=== PATIENT | male | born 1975 | race Caucasian/White ===

== ENCOUNTER 2019-11-23 15:10 | Emergency (ER) | payer MEDICARE, MEDICAID, SELFPAY ==
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
[2019-11-23 15:20] VITALS: BP 150/78; PULSE 102; RESP 20; TEMP 36.4; O2SAT 97
--- NOTE | 2019-11-23 15:24 | ECG_ITS ---
Measurements Intervals [place] Rate: 89 P: 64 WV: 145 QRS: 54 QRSD: 92 T: 33 QT: 348 QTc: 425 Interpretive Statements SINUS RHYTHM BORDERLINE T WAVE ABNORMALITY- INFERIOR LEADS BASELINE ARTIFACT- I, III, AVR, AVL, AVF BORDERLINE ECG Electronically Signed On 11-23-2019 15:47:16 CDT by Tavon Nunez D.O.
[2019-11-23 17:03] LABS: Basophils Percent Auto 0.4 % (0.2-1.2); Eosinophils Absolute Auto 0.2 K/mm3 (0-0.3); Eosinophils Percent Auto 2.5 % (0-4.4); Hematocrit 39.8 % (42.0-52.0); Hemoglobin 12.6 g/dL (14.0-18.0); Immature Granulocyte Absolute 0.02 K/mm3 (0.00-0.031); Immature Granulocyte Percent A 0.3 % (0-0.5); Lymphocytes Absolute Auto 1.41 K/mm3 (0.9-3.2); Lymphocytes Percent Auto 18.6 % (18.3-44.2); Mean Corpuscular HGB Conc 31.7 g/dl (32-36); Mean Corpuscular Hemoglobin 27.8 pg (26-34); Mean Corpuscular Volume 87.7 fl (80-100); Mean Platelet Volume 10.1 fl (7.4-10.4); Monocytes Absolute Auto 0.6 K/mm3 (0.1-0.6); Monocytes Percent Auto 8.2 % (2.6-8.5); Neutrophils Absolute Auto 5.3 K/mm3 (1.3-6.7); Platelet Count Result 201 k/mm3 (150-375); Red Blood Count 4.54 M/mm3 (4.6-6.20); White Blood Count 7.6 K/mm3 (4.5-10.0)
[2019-11-23 17:13] LABS: Prothrombin Time 12.5 Seconds (11.1-14.7)
[2019-11-23 17:14] LABS: Blood Urea Nitrogen 17 mg/dL (9-20); Calcium 8.8 mg/dL (8.4-10.2); Carbon Dioxide 26 mmol/L (22-30); Chloride 105 mmol/L (98-107); Estimated CRCL calculation 148 ml/min; Estimated Glomerular Filt Rate > 60; Glucose 99 mg/dL (75-110); Partial Thromboplastin Time 28.1 SECONDS (22.3-36.8); Potassium 4.4 mmol/L (3.4-5.0); Sodium 138 mmol/L (137-145)
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
[2019-11-23 17:55] VITALS: BP 136/94; PULSE 83; RESP 18; O2SAT 97
[2019-11-23] MEDS: KETOROLAC 30 MG/ML VIAL (*BKC) IV PUSH (17:55)
--- NOTE | 2019-11-23 19:10 | PC.NURSE ---
called lab to add on orders at this time
[2019-11-23 19:59] LABS: Troponin I < 0.012 ng/mL (0.000-0.034)
[2019-11-23 20:43] VITALS: BP 153/98; PULSE 72; RESP 20; O2SAT 97
== END 2019-11-23 21:20 | disposition home or self-care (01) ==
PROVIDERS: Physician Assistant; Emergency Provider Emergency Medicine; PCP Family Medicine
DX: S22.32XA Fracture of one rib, left side, initial encounter for closed fracture (principal); J90 Pleural effusion, not elsewhere classified; Z86.718 Personal history of other venous thrombosis and embolism; K21.9 Gastro-esophageal reflux disease without esophagitis; Z98.1 Arthrodesis status; M47.816 Spondylosis without myelopathy or radiculopathy, lumbar region; M47.814 Spondylosis without myelopathy or radiculopathy, thoracic region; M48.04 Spinal stenosis, thoracic region; M48.061 Spinal stenosis, lumbar region without neurogenic claudication; V47.6XXA Car passenger injured in collision with fixed or stationary object in traffic accident, initial encounter
CPT/HCPCS: 36415; 71046; 71100; 72128; 72131; 73030; 80048; 84484; 85025; 85610; 85730; 93005; 96374; 99284; A9270; J1885

== ENCOUNTER 2020-02-24 08:39 | Observation (INO) | payer MEDICARE, MEDICAID, SELFPAY ==
[2020-02-24] VITALS (9 sets, daily range): BP systolic 113–149; BP diastolic 59–104; PULSE 82–102; RESP 18–20; TEMP 36.7–37.2; O2SAT 94–100; BMI 53.1
--- NOTE | ~2020-02-24 | CT_ITS ---
EXAMINATION: CT facial bones w con EXAM DATE: 02/26/2020 09:20 INDICATION: Oral pain, recent dental infection. Poor dilatation. TECHNIQUE: Spiral CT of the facial bones was acquired in the axial plane following intravenous inject ion of 75 mL Omnipaque 350. Coronal reformatted images were also reviewed. The dose-length product (DLP) for this examination was 821.45 mGy-cm. The exposure was tailored according to patient size, a nd iterative reconstruction (ASIR) was used as additional dose reduction technique. There is no prio r study for comparison. FINDINGS: Patient is missing multiple teeth. There is no periapical lucency of the remaining teeth. T here is sizable erosion in tooth #6. No appreciable facial swelling, no abscess. Submandibular and pa rotid glands were imaged and are unremarkable. No facial venous thrombosis. Tiny right maxillary sinu s mucous retention cyst. There are no displaced acute nasal bone fractures. The mandible, sinuses and orbits are intact. The orbits, globes and extraocular muscles are unremarkable. IMPRESSION: Cavity and tooth #6. No periapical lucency or soft tissue abscess. Reviewed, dictated and finalized at location B.
--- NOTE | ~2020-02-24 | US_ITS ---
EXAMINATION: US venous doppler LE EXAM DATE: 02/27/2020 14:59 INDICATION: Previous blood clot, on anticoagulation. Hematoma. TECHNIQUE: Multiple grayscale, color flow and Doppler images of the lower extremity deep venous syste ms bilaterally were obtained and reviewed. Comparison is made to prior examination from 10/02/2008. FINDINGS: Right side: The right common femoral, femoral and profunda veins demonstrate normal color flow, respi ratory variation, augmentation and compressibility. Compressibility, color flow confirmed within the right popliteal, posterior tibial, peroneal, and greater saphenous veins. There is a right calf supe rficial vein which is noncompressible, thrombosed. Left side: The left common femoral, femoral and profunda veins demonstrate normal color flow, respira tory variation, augmentation and compressibility. Compressibility, color flow confirmed within the l eft popliteal, posterior tibial, peroneal, and greater saphenous veins. IMPRESSION: 1. Right calf superficial thrombophlebitis. 2. No lower extremity deep venous thrombosis bilaterally. Reviewed, dictated and finalized at location B.
--- NOTE | ~2020-02-24 | CT_ITS ---
EXAMINATION: CT abd pelvis lumbar wo con DATE: 02/24/2020 12:39 INDICATION: Abdominal pain. Back pain. Leukocytosis. TECHNIQUE: Computed tomography (CT) of the abdomen and pelvis and lumbar spine was performed without intravenous contrast. Automated exposure control and iterative reconstruction technique were employed . The dose-length product was 1612.98 mGy-cm. COMPARISON: CT lumbar spine 11/23/2019, CT abdomen and pelvis 12/09/2010 FINDINGS: CT ABDOMEN AND PELVIS: The visualized portions of the lung bases demonstrate mild elevation of right hemidiaphragm and mild atelectasis. Calcified right lung nodules are consistent with old granulomatou s disease. No pleural effusion. The heart size is normal. No pericardial effusion. There are surgical changes of the stomach. The liver and spleen are normal. There are changes of cholecystectomy. The p ancreas, adrenal glands, and kidneys are normal. There is no urolithiasis. There is a catheter in the bladder. There are no dilated loops of bowel. The appendix is normal. There are no pathologically en larged lymph nodes. There is no free intraperitoneal fluid. There is enlargement of left iliacus musc le with adjacent fat stranding. CT LUMBAR SPINE: There is 15 degrees levoscoliosis of lumbar spine. There is interbody fusion at L2-L 3. There are changes of posterior fusion procedure at L2-L3 with pedicle screws. There is chronic ant erior wedging of T12 and L1 vertebral bodies. There is severely decreased disc height at L1-L2, moder ately decreased disc height at L3-L4 and L4-L5, and severely decreased disc height at L5-S1. The foll owing disc levels are specifically discussed: L1-L2: The disc is bulging. There is severe bilateral facet joint osteoarthritis. There is moderate b ilateral neural foraminal stenosis. There is mild central canal stenosis. L2-L3: There is mild left facet joint hypertrophy. There is mild left neural foraminal stenosis. Ther e is no central canal stenosis. L3-L4: The disc is bulging. There is severe bilateral facet joint osteoarthritis. There is moderate b ilateral neural foraminal stenosis. There is moderate central canal stenosis. L4-L5: The disc is bulging. There is severe bilateral facet joint osteoarthritis. There is mild bilat eral neural foraminal stenosis. There is mild central canal stenosis. L5-S1: The disc is bulging. There is moderate right and severe left facet joint osteoarthritis. There is severe bilateral neural foraminal stenosis. There is mild central canal stenosis. IMPRESSION: 1. Enlargement of left iliacus muscle with adjacent fat stranding, most likely secondary to isodense intramuscular hematoma. 2. Severe lumbar spondylosis. 3. Anterior and posterior fusion procedures at L2-L3. 4. Lumbar levoscoliosis. Reviewed, dictated and finalized at location A.
--- NOTE | ~2020-02-24 | XR_ITS ---
EXAMINATION: XR foot RT 2V DATE: 02/24/2020 22:23 INDICATION: Right foot pain. TECHNIQUE: 2 views of right foot were obtained. COMPARISON: None. FINDINGS: There is mild hallux valgus. No fracture. Joint spaces are normal. There are enthesophytes at the posterior and plantar aspects of calcaneal tuberosity. IMPRESSION: 1. Mild hallux valgus. Reviewed, dictated and finalized at location A. IMPRESSION: 1. Mild hallux valgus.
--- NOTE | ~2020-02-24 | XR_ITS ---
EXAMINATION: XR chest 1V portable DATE: 02/24/2020 12:44 INDICATION: Weakness. TECHNIQUE: A single frontal view of the chest was obtained on 2 radiographs. COMPARISON: Chest 2 views 11/23/2019 FINDINGS: There is eventration of anterior right hemidiaphragm. There is mild atelectasis at right shanique ng base. No pleural effusion or pneumothorax. The heart size is normal. There are changes of posterio r fusion procedure in lumbar spine. Surgical clips in the right upper quadrant are likely from cholec ystectomy. IMPRESSION: 1. Chronic eventration of anterior right hemidiaphragm with mild atelectasis at right lung base. Reviewed, dictated and finalized at location A.
[2020-02-24] MEDS: ONDANSETRON INJ 4 MG/2 ML VIAL IV PUSH (10:00)
[2020-02-24] MEDS: KETOROLAC 30 MG/ML VIAL (*BKC) IV PUSH (10:00)
[2020-02-24] MEDS: LACTATED RINGERS 1,000 ML 999 ML IV CONT (10:00)
[2020-02-24 10:18] LABS: Basophils Percent Auto 0.2 % (0.2-1.2); Eosinophils Absolute Auto 0.1 K/mm3 (0-0.3); Eosinophils Percent Auto 0.3 % (0-4.4); Hematocrit 27.8 % (42.0-52.0); Hemoglobin 8.8 g/dL (14.0-18.0); Immature Granulocyte Absolute 0.19 K/mm3 (0.00-0.031); Immature Granulocyte Percent A 1.1 % (0-0.5); Lymphocytes Absolute Auto 0.71 K/mm3 (0.9-3.2); Mean Corpuscular HGB Conc 31.7 g/dl (32-36); Mean Corpuscular Hemoglobin 26.8 pg (26-34); Mean Corpuscular Volume 84.8 fl (80-100); Monocytes Absolute Auto 1.2 K/mm3 (0.1-0.6); Monocytes Percent Auto 6.9 % (2.6-8.5); Neutrophils Absolute Auto 15.4 K/mm3 (1.3-6.7); Neutrophils Percent Auto 87.5 % (45.5-73.1); Platelet Count Result 258 k/mm3 (150-375); Red Blood Count 3.28 M/mm3 (4.6-6.20); Red Cell Distribution Width 15.1 % (11.5-14.5); White Blood Count 17.6 K/mm3 (4.5-10.0)
[2020-02-24 10:30] LABS: INR 1.4
[2020-02-24 10:31] LABS: Partial Thromboplastin Time 44.7 SECONDS (22.3-36.8)
[2020-02-24 10:40] LABS: Alanine Aminotransferase 23 U/L (4-50); Albumin Level 2.9 g/dL (3.5-5.1); Alkaline Phosphatase 142 U/L (38-126); Anion Gap 8 mmol/L (8-16); Aspartate Amino Transferase 30 U/L (17-59); Bilirubin,Total 0.2 mg/dL (0.2-1.3); Blood Urea Nitrogen 16 mg/dL (9-20); Calcium 8.3 mg/dL (8.4-10.2); Carbon Dioxide 27 mmol/L (22-30); Chloride 102 mmol/L (98-107); Creatine Kinase 141 U/L (55-170); Estimated Glomerular Filt Rate > 60; Glucose 103 mg/dL (75-110); Potassium 3.1 mmol/L (3.4-5.0); Sodium 137 mmol/L (137-145)
[2020-02-24 11:33] LABS: Lipase < 10 U/L (23-300)
[2020-02-24 11:37] LABS: Add Urine Microscopic? YES; Appearance Urine Clear (Clear); Bacteria Urine Trace /hpf; Bilirubin Urine Negative (Negative); Blood Urine 3+ (Negative); Cellular Casts Urine Present /lpf; Color Urine Yellow (Yellow); Glucose Urine UA Negative (Negative); Ketones Urine Negative (Negative); Leukocyte Esterase Ur Negative LEU/UL (Negative); Mucus Urine Rare /lpf; Nitrate Urine Negative (Negative); Protein Urine 2+ mg/dL (Negative); RBC Urine >75 /hpf (0-2); Specific Grav Ur 1.023 (1.001-1.035); Squamous Epithelial Cell Urine Occasional /hpf (Few); Urobilinogen Urine Negative mg/dL (<2.0); WBC Urine 16-20 /hpf
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
[2020-02-24 15:50] LABS: Hematocrit 29.1 % (42.0-52.0); Hemoglobin 9.1 g/dL (14.0-18.0)
--- NOTE | 2020-02-24 17:40 | ADMGEN ---
This patient, Moreno Slaughter, was admitted to Medical Room 243-01. Patient/family oriented to hospital policies and general routines including ID bracelet, bed and alarms, visiting hours, pain management, procedures, bathroom and other care routines, personal items, smoking policy, room service/diet, and visiting hours. Valuables list has been completed. Information on how to activate the Rapid Response Team has been discussed. Patient/Family are encouraged to report perceived risks to care and to ask questions if they do not understand what they are told or what they should do.
[2020-02-24] MEDS: polyethylene glycoL 3350 17 GM POWD.PACK PO (20:30)
[2020-02-24] MEDS: BISACODYL 5 MG TABLET EC PO (20:30)
[2020-02-24 22:05] LABS: Hematocrit 28.2 % (42.0-52.0); Hemoglobin 9.2 g/dL (14.0-18.0)
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
[2020-02-24] MEDS: METHYLNALTREXONE 12 MG/0.6 ML VIAL SUB-Q (23:04)
[2020-02-24] MEDS: traZODone HCL 50 MG TABLET PO (23:07)
[2020-02-24] MEDS: MELATONIN 3 MG TABLET PO (23:07)
[2020-02-24] MEDS: TIZANIDINE HCL 4 MG TABLET PO (23:09)
[2020-02-25] MEDS: methylPREDNISolone SOD SUCC 125 MG VIAL 60 MG IV PUSH ×4 (00:40→17:15)
[2020-02-25] MEDS: CLINDAMYCIN HCL 150 MG CAP 300 MG PO ×4 (00:50→17:15)
[2020-02-25 03:09] LABS: Basophils Percent Auto 0.2 % (0.2-1.2); Hematocrit 28.6 % (42.0-52.0); Hemoglobin 9.2 g/dL (14.0-18.0); Immature Granulocyte Absolute 0.12 K/mm3 (0.00-0.031); Immature Granulocyte Percent A 0.7 % (0-0.5); Lymphocytes Absolute Auto 0.63 K/mm3 (0.9-3.2); Lymphocytes Percent Auto 3.5 % (18.3-44.2); Mean Corpuscular HGB Conc 32.2 g/dl (32-36); Mean Corpuscular Hemoglobin 26.7 pg (26-34); Mean Corpuscular Volume 82.9 fl (80-100); Mean Platelet Volume 10.5 fl (7.4-10.4); Monocytes Absolute Auto 0.5 K/mm3 (0.1-0.6); Monocytes Percent Auto 2.8 % (2.6-8.5); Neutrophils Absolute Auto 16.7 K/mm3 (1.3-6.7); Neutrophils Percent Auto 92.8 % (45.5-73.1); Platelet Count Result 257 k/mm3 (150-375); Red Blood Count 3.45 M/mm3 (4.6-6.20); Red Cell Distribution Width 14.7 % (11.5-14.5)
[2020-02-25 03:22] LABS: Alanine Aminotransferase 27 U/L (4-50); Albumin Level 3.1 g/dL (3.5-5.1); Alkaline Phosphatase 157 U/L (38-126); Anion Gap 9 mmol/L (8-16); Aspartate Amino Transferase 39 U/L (17-59); Bilirubin,Total 0.5 mg/dL (0.2-1.3); Blood Urea Nitrogen 15 mg/dL (9-20); Calcium 8.5 mg/dL (8.4-10.2); Carbon Dioxide 24 mmol/L (22-30); Chloride 103 mmol/L (98-107); Estimated CRCL calculation 160 ml/min; Estimated Glomerular Filt Rate > 60; Glucose 126 mg/dL (75-110); Potassium 3.4 mmol/L (3.4-5.0); Sodium 136 mmol/L (137-145)
[2020-02-25 06:00] VITALS: BP 146/76; PULSE 98; RESP 22; TEMP 36.1; O2SAT 98
[2020-02-25] MEDS: CYCLOBENZAPRINE HCL 10 MG TABLET PO ×3 (08:35→17:15)
[2020-02-25] MEDS: POTASSIUM CHLORIDE 20 MEQ TABLET PO (08:35)
[2020-02-25] MEDS: POTASSIUM CHLORIDE 20 MEQ TABLET.ER PO (08:35)
[2020-02-25] MEDS: PANTOPRAZOLE 40 MG TABLET PO (08:35)
[2020-02-25] MEDS: GABAPENTIN 300 MG CAPSULE 600 MG PO ×3 (08:36→17:15)
[2020-02-25] MEDS: MULTIVITAMINS THERAPEUTIC TAB (*BKC) 1 TABLET PO (09:29)
[2020-02-25] MEDS: FUROSEMIDE 40 MG TABLET PO (09:29)
--- NOTE | 2020-02-25 11:50 | PCPTNOTE ---
Per nursing, patient is complaining of significant pain, just medicated by nursing and patient is sleeping...will see later as appropriate
--- NOTE | 2020-02-25 12:51 | PCPTNOTE ---
Tried many times to persuade patient to walk with therapist...declined multiple times...said that he would walk at 3:00...we'll see.
--- NOTE | 2020-02-25 12:57 | PC.NURSE ---
The patient refused to have the MRI performed due to being claustrophobic. MOIRA Lara said to cancel the order for that MRI.
[2020-02-25] MEDS: BISACODYL 5 MG TABLET EC PO (13:10)
[2020-02-25] MEDS: polyethylene glycoL 3350 17 GM POWD.PACK 34 GM PO (13:31)
[2020-02-25 14:00] VITALS: BP 128/65; PULSE 63; RESP 16; TEMP 35.9; O2SAT 95
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
[2020-02-25 16:25] LABS: Amphetamine Screen Urine Negative (Negative); Barbiturate Screen Urine Negative (Negative); Benzodiazepines Screen Urine Negative (Negative); Cannabinoid Screen Urine Negative (Negative); Cocaine Screen Urine Negative (Negative); Methadone Screen Urine Negative (Negative); Opiate Screen Urine Positive (Negative); Phencyclidine Screen Urine Negative (Negative)
[2020-02-25] MEDS: traZODone HCL 50 MG TABLET PO (20:55)
[2020-02-25] MEDS: predniSONE 40 MG, predniSONE 10 MG 50 MG PO (20:55)
[2020-02-25] MEDS: MELATONIN 3 MG TABLET PO (20:55)
[2020-02-25 21:58] VITALS: BP 136/74; PULSE 92; RESP 18; TEMP 36.1; O2SAT 96
[2020-02-26] MEDS: methylPREDNISolone SOD SUCC 125 MG VIAL 60 MG IV PUSH ×4 (00:08→17:40)
[2020-02-26] MEDS: CLINDAMYCIN HCL 150 MG CAP 300 MG PO ×3 (00:09→12:51)
[2020-02-26] MEDS: predniSONE 40 MG, predniSONE 10 MG 50 MG PO ×2 (04:11→08:08)
[2020-02-26 04:56] LABS: IFOB Positive Control Positive; Immunochemical Fecal Occult Bl Positive (N)
[2020-02-26 05:45] VITALS: BP 131/76; PULSE 96; RESP 20; TEMP 36.2; O2SAT 97
[2020-02-26 06:01] LABS: Basophils Percent Auto 0.2 % (0.2-1.2); Hematocrit 30.3 % (42.0-52.0); Hemoglobin 9.9 g/dL (14.0-18.0); Immature Granulocyte Absolute 0.15 K/mm3 (0.00-0.031); Immature Granulocyte Percent A 0.7 % (0-0.5); Lymphocytes Absolute Auto 1.02 K/mm3 (0.9-3.2); Lymphocytes Percent Auto 4.6 % (18.3-44.2); Mean Corpuscular HGB Conc 32.7 g/dl (32-36); Mean Corpuscular Hemoglobin 26.8 pg (26-34); Mean Corpuscular Volume 81.9 fl (80-100); Mean Platelet Volume 11.4 fl (7.4-10.4); Monocytes Absolute Auto 0.5 K/mm3 (0.1-0.6); Monocytes Percent Auto 2.3 % (2.6-8.5); Neutrophils Absolute Auto 20.5 K/mm3 (1.3-6.7); Neutrophils Percent Auto 92.2 % (45.5-73.1); Platelet Count Result 330 k/mm3 (150-375); Red Cell Distribution Width 14.8 % (11.5-14.5); White Blood Count 22.2 K/mm3 (4.5-10.0)
[2020-02-26 06:18] LABS: Anion Gap 10 mmol/L (8-16); Blood Urea Nitrogen 23 mg/dL (9-20); Calcium 8.3 mg/dL (8.4-10.2); Carbon Dioxide 26 mmol/L (22-30); Chloride 103 mmol/L (98-107); Estimated CRCL calculation 180 ml/min; Estimated Glomerular Filt Rate > 60; Glucose 150 mg/dL (75-110); Potassium 3.3 mmol/L (3.4-5.0); Sodium 139 mmol/L (137-145)
[2020-02-26] MEDS: diphenhydrAMINE HCl CAP 25 MG CAPSULE 50 MG PO (08:08)
--- NOTE | 2020-02-26 08:46 | PCPTNOTE ---
Attempted PT eval. Pt refused therapy, states he wants to eat breakfast before having therapy. Will try again at later time.
[2020-02-26] MEDS: POTASSIUM CHLORIDE 20 MEQ TABLET.ER PO (09:51)
[2020-02-26] MEDS: CYCLOBENZAPRINE HCL 10 MG TABLET PO ×3 (09:51→16:44)
[2020-02-26] MEDS: GABAPENTIN 300 MG CAPSULE 600 MG PO ×3 (09:51→16:44)
[2020-02-26] MEDS: PANTOPRAZOLE 40 MG TABLET PO (09:51)
[2020-02-26] MEDS: MULTIVITAMINS THERAPEUTIC TAB (*BKC) 1 TABLET PO (09:51)
[2020-02-26] MEDS: FUROSEMIDE 40 MG TABLET PO (09:51)
[2020-02-26] MEDS: POTASSIUM CHLORIDE 20 MEQ TABLET 40 MEQ PO (09:51)
[2020-02-26] MEDS: polyethylene glycoL 3350 17 GM POWD.PACK PO (09:52)
--- NOTE | 2020-02-26 10:15 | PM.IMPN ---
Subjective Date/time seen: 02/26/20 0845 Objective Data Vital Signs Vital Signs: Vital Signs - 24 hr 02/25/20 14:00 02/25/20 21:58 02/26/20 05:45 Temperature 96.7 F L 96.9 F L 97.2 F L Pulse Rate 63 92 96 Respiratory Rate 16 18 20 Blood Pressure 128/65 136/74 131/76 Pulse Oximetry 95 96 97 Intake/Output Intake/Output: Intake & Output 02/23/20 02/24/20 02/25/20 02/26/20 23:59 23:59 23:59 23:59 Intake Total 1000 820 150 Output Total 1000 2150 700 Balance 0 -1330 -550 Meds/Results Medications: Active Medications Generic Name Dose Route Start Last Admin Trade Name Freq PRN Reason Stop Dose Admin Hydrocodone Bitart/Acetaminophen 1 tab 02/24/20 14:59 02/26/20 09:57 [place] 10-325 Mg PO 1 tab Q6HR PRN Administration Moderate Pain (4-6) Bisacodyl 10 mg 02/25/20 12:35 Dulcolax Suppository RECTAL QAM PRN Constipation Clindamycin HCl 300 mg 02/25/20 00:00 02/26/20 06:01 Cleocin Cap PO 300 mg Q6HR SHAKIR Administration Cyclobenzaprine HCl 10 mg 02/25/20 09:00 02/26/20 09:51 Flexeril PO 10 mg TID SHAKIR Administration Furosemide 40 mg 02/25/20 09:00 02/26/20 09:51 Lasix Tablet PO 40 mg DAILY SHAKIR Administration Gabapentin 600 mg 02/25/20 09:00 02/26/20 09:51 Neurontin PO 600 mg TID SHAKIR Administration Hydromorphone HCl 0.5 mg 02/25/20 07:49 02/25/20 11:41 Dilaudid Inj IV PUSH 0.5 mg Q4H PRN Administration Pain Rated 7-10 Lorazepam 0.5 mg 02/24/20 22:06 02/25/20 10:09 Ativan Inj IV PUSH 0.5 mg Q6H PRN Administration Anxiety Melatonin 3 mg 02/24/20 22:30 02/25/20 20:55 Melatonin PO 3 mg HS SHAKIR Administration Methylprednisolone Sodium Succinate 60 mg 02/25/20 00:00 02/26/20 06:00 Solu-Medrol IV PUSH 60 mg Q6HR SHAKIR Administration Multivitamins Therapeutic 1 tablet 02/25/20 09:00 02/26/20 09:51 Multivitamins Therapeutic(*Bkc PO 1 tablet DAILY SHAKIR Administration Ondansetron HCl 4 mg 02/24/20 14:54 Zofran Inj IV PUSH Q4H PRN Nausea Pantoprazole Sodium 40 mg 02/25/20 09:00 02/26/20 09:51 Protonix PO 40 mg DAILY SHAKIR Administration Polyethylene Glycol 17 gm 02/26/20 09:00 02/26/20 09:52 Miralax PO 17 gm QAM SHAKIR Administration Potassium Chloride 20 meq 02/25/20 09:00 02/26/20 09:51 Kcl Tablet PO 20 meq DAILY SHAKIR Administration Tizanidine HCl 4 mg 02/24/20 22:04 02/24/20 23:09 Zanaflex PO 4 mg QID PRN Administration muscle spasms Trazodone HCl 50 mg 02/24/20 23:00 02/25/20 20:55 Desyrel PO 50 mg HS SHAKIR Administration Radiology Results: ITS Impressions Chest X-Ray 02/24/20 12:45 IMPRESSION: 1. Chronic eventration of anterior right hemidiaphragm with mild atelectasis at right lung base. Miscellaneous CT Procedure 02/24/20 12:46 IMPRESSION: 1. Enlargement of left iliacus muscle with adjacent fat stranding, most likely secondary to isodense intramuscular hematoma. 2. Severe lumbar spondylosis. 3. Anterior and posterior fusion procedures at L2-L3. 4. Lumbar levoscoliosis. Foot X-Ray 02/25/20 07:59 IMPRESSION: 1. Mild hallux valgus. Face CT 02/26/20 09:33 IMPRESSION: Cavity and tooth #6. No periapical lucency or soft tissue abscess. Labs Labs: Laboratory Results - last 24 hr 02/25/20 02/26/20 02/26/20 16:02 04:17 05:15 WBC 22.2 H RBC 3.70 L Hgb 9.9 L Hct 30.3 L MCV 81.9 MCH 26.8 MCHC 32.7 RDW 14.8 H Plt Count 330 MPV 11.4 H Immature Gran % (Auto) 0.7 H Neut % (Auto) 92.2 H Lymph % (Auto) 4.6 L [place] % (Auto) 2.3 L Eos % (Auto) 0.0 Baso % (Auto) 0.2 Lymph # (Auto) 1.02 [place] # (Auto) 0.5 Eos # (Auto) 0.0 Baso # (Auto) 0.0 Abs Immat Gran (auto) 0.15 H Absolute Neuts (auto) 20.5 H Absolute Nucleated RBC 0.0 Nucleated RBC % 0.0 Sodium Potassium Chloride Carbon Di
--- NOTE | 2020-02-26 10:40 | PC.NURSE ---
Patient crying and moaning - states he has severe left lower back pain - rating it 9/10. Patient states he is scared and wants the MRI now - He was unable to tolerate it yesterday. Wanting to talk with Jane PIZARRO. Called Jane and discussed with her. She states she will come up to speak with patient as soon as she is able. Jane states she will reorder MRI with premedication of 1 mg IV Lorazepam. Discussed with patient and with MRI. Patient is willing to retry MRI with Lorazepam.
--- NOTE | 2020-02-26 12:28 | PC.NURSE ---
To MRI via wheelchair with transporters.
--- NOTE | 2020-02-26 12:55 | PC.NURSE ---
Patient returned from MRI via wheelchair. Unable to complete MRI due to patient not being able to ambulate to MRI machine and get up on the table. Notified Jane PIZARRO of the same.
--- NOTE | 2020-02-26 13:18 | PCPTNOTE ---
Attempted PT eval. Pt refusing therapy. States he's in too much pain and [employer] just gave him ice pack. Explained importance of therapy and he still refused. Will try again at later time.
--- NOTE | 2020-02-26 13:30 | PC.NURSE ---
Patient moaning and yelling out in pain. States he is in excruciating pain . Called Jane PIZARRO and left voice message notifying her of same. Awaiting orders. Ice pack applied to left lower back. Kpad in room. Patient alternating hot and cold packs.
--- NOTE | 2020-02-26 15:26 | PM.TDS ---
Transfer Discharge Sum: Prov Provider Date of admission: 02/24/20 15:12 Primary care physician: Kerry العلي, Admitting clinician: Ever Vargas MD DS: Admitting Diagnosis Admitting Diagnosis Admitting Diagnosis: anemia/right iliacus muscle hematoma DS: Discharge Diagnosis Discharge Diagnosis (1) Low back pain: Code(s): M54.5 - Low back pain Status: Acute Assessment and Plan: Date of Service 02/26/20 Mr. Slaughter is a 44yo M with history of chronic back pain after spinal surgery (evacuation of epidural abscess, osetomyelitis/discitis with L1-L2 fusion) 02/19/2018, anemia, history of DVT in upper and lower extremities on long-term anticoagulation with Eliquis, morbid obesity who presented to [facility] with complaints of worsening lower back pain. The patient is a difficult historian, but describes that he fell around 3 to 4 weeks ago, and he noted increased pain to his lower back began about 1 week after that. He is noted to have urinary retention on arrival and urinary Rea catheter was placed. Urine culture is negative. He described constipation but after starting a bowel regimen this morning, has had 1 large BM this morning 02/25. He is prescribed high doses of narcotics for low back pain which may be contributing to constipation. He denies any saddle anesthesia or radiculopathy. ROMARIO lower extremities are neurovascularly intact. Leukocytosis is noted on arrival WBC 17,000 which has increased to 22,200 today 02/25. He was started on IV solu-medrol on arrival with concerns for his acute back pain, which in part may be contributing to the upward trend. He is afebrile. CT abdomen/pelvis/lumbar spine has demonstrated severe lumbar spondylosis, moderate central canal stenosis at L4 without any cord signal changes. Imaging does reveal a left iliacus intramuscular hematoma, suspect this may be in part causing his pain and could have sustained this from his fall 4 weeks ago. MRI has been attempted and unable to be completed due to the patient's size and claustrophobia. Given his history of previous spinal infection requiring surgery and our inability to get him into the MRI, it is felt that he would benefit from transfer to tertiary care at [facility] where he is established with [facility] and imaging could be obtained in open MRI to rule out any additional acute pathology causing his pain. I have discussed the case with Dr Brandon, Fellow on behalf of his attending Dr Kelli Lee with [facility] who have agreed to see Mr. Slaughter in consultation. I have spoken with Dr Omar Magaña with the hospitalist team who has accepted the patient in transfer 02/25. Afebrile. No respiratory symptoms. No recent sick contacts or known exposure to any COVID positive persons. He is hemodynamically stable for transfer to [facility] at this time. (2) Anemia: Qualifiers: Anemia type: unspecified type Qualified Code(s): D64.9 - Anemia, unspecified Code(s): D64.9 - Anemia, unspecified Status: Acute Assessment and Plan: Hgb 9.9 today. Will continue to hold his home Eliquis for now given hematoma and hematuria. (3) History of DVT (deep vein thrombosis): Code(s): Z86.718 - Personal history of other venous thrombosis and embolism Status: Chronic Assessment and Plan: On long-term Eliquis for history of DVT, held at this time. (4) Constipation: Qualifiers: Constipation type: unspecified constipation type Qualified Code(s): K59.00 - Constipation, unspecified Code(s): K59.00 - Constipation, unspecified Status: Resolved Assessment and Plan: Suspect may be in part related to narcotics. He was treated with Relistor; continue miralax and dulcolax. 1 large BM this morning. CT does not demonstrate any large volume o
--- NOTE | 2020-02-26 15:43 | PC.NURSE ---
Patient has been sleeping and resting comfortably since receiving higher dose of IV Dilaudid.
[2020-02-26 16:35] VITALS: BP 115/95; PULSE 63; RESP 21; TEMP 37.1; O2SAT 97
[2020-02-26 18:13] LABS: Add Urine Microscopic? YES; Appearance Urine Clear (Clear); Bacteria Urine Trace /hpf; Bilirubin Urine Negative (Negative); Blood Urine 2+ (Negative); Color Urine Yellow (Yellow); Glucose Urine UA Negative (Negative); Ketones Urine Negative (Negative); Leukocyte Esterase Ur Negative LEU/UL (Negative); Mucus Urine Rare /lpf; Nitrate Urine Negative (Negative); Protein Urine 1+ mg/dL (Negative); Squamous Epithelial Cell Urine Rare /hpf (Few); Urobilinogen Urine Negative mg/dL (<2.0)
[2020-02-26 18:16] LABS: Specific Grav Ur 1.051 (1.001-1.035)
[2020-02-26] MEDS: MELATONIN 3 MG TABLET PO (20:45)
[2020-02-26] MEDS: traZODone HCL 50 MG TABLET PO (20:45)
[2020-02-26] MEDS: TIZANIDINE HCL 4 MG TABLET PO (20:47)
[2020-02-26 22:00] VITALS: BP 137/74; PULSE 72; RESP 18; TEMP 36.6; O2SAT 96
[2020-02-27] MEDS: methylPREDNISolone SOD SUCC 125 MG VIAL 60 MG IV PUSH ×3 (00:02→17:27)
[2020-02-27 05:53] LABS: Basophils Percent Auto 0.1 % (0.2-1.2); Hematocrit 31.3 % (42.0-52.0); Hemoglobin 10.2 g/dL (14.0-18.0); Immature Granulocyte Absolute 0.14 K/mm3 (0.00-0.031); Immature Granulocyte Percent A 0.9 % (0-0.5); Lymphocytes Absolute Auto 1.03 K/mm3 (0.9-3.2); Lymphocytes Percent Auto 6.6 % (18.3-44.2); Mean Corpuscular HGB Conc 32.6 g/dl (32-36); Mean Corpuscular Hemoglobin 26.6 pg (26-34); Mean Corpuscular Volume 81.5 fl (80-100); Monocytes Absolute Auto 0.5 K/mm3 (0.1-0.6); Monocytes Percent Auto 2.9 % (2.6-8.5); Neutrophils Percent Auto 89.5 % (45.5-73.1); Platelet Count Result 339 k/mm3 (150-375); Red Blood Count 3.84 M/mm3 (4.6-6.20); Red Cell Distribution Width 14.9 % (11.5-14.5); White Blood Count 15.7 K/mm3 (4.5-10.0)
[2020-02-27 06:00] VITALS: BP 133/81; PULSE 59; RESP 18; TEMP 36.6; O2SAT 96
[2020-02-27 06:04] LABS: Anion Gap 7 mmol/L (8-16); Blood Urea Nitrogen 29 mg/dL (9-20); Calcium 8.4 mg/dL (8.4-10.2); Carbon Dioxide 26 mmol/L (22-30); Chloride 105 mmol/L (98-107); Estimated CRCL calculation 180 ml/min; Estimated Glomerular Filt Rate > 60; Glucose 141 mg/dL (75-110); Magnesium 2.2 mg/dL (1.6-2.3); Potassium 3.8 mmol/L (3.4-5.0); Sodium 138 mmol/L (137-145)
[2020-02-27] MEDS: GABAPENTIN 300 MG CAPSULE 600 MG PO ×3 (09:15→16:12)
[2020-02-27] MEDS: PANTOPRAZOLE 40 MG TABLET PO (09:15)
[2020-02-27] MEDS: CYCLOBENZAPRINE HCL 10 MG TABLET PO ×3 (09:15→16:12)
[2020-02-27] MEDS: POTASSIUM CHLORIDE 20 MEQ TABLET.ER PO (09:16)
[2020-02-27] MEDS: ENOXAPARIN 40 MG/0.4 ML SYRINGE SUB-Q (09:16)
[2020-02-27] MEDS: polyethylene glycoL 3350 17 GM POWD.PACK PO (09:16)
[2020-02-27] MEDS: FUROSEMIDE 40 MG TABLET PO (09:16)
[2020-02-27] MEDS: MULTIVITAMINS THERAPEUTIC TAB (*BKC) 1 TABLET PO (09:17)
--- NOTE | 2020-02-27 09:59 | PCPTNOTE ---
Attepted PT eval. Pt awaitiing transfer to [facility]. Will follow.
--- NOTE | 2020-02-27 11:04 | PCPTNOTE ---
Attempted PT eval. Pt refused, states he's in too much pain. Geena ISAAC aware. Spoke w/ Peyton PIZARRO and she stated to continue trying to eval pt.
--- NOTE | 2020-02-27 12:35 | PM.IMPN ---
Progress Note: A&P Assessment and Plan (1) Low back pain: Code(s): M54.5 - Low back pain Status: Acute Assessment and Plan: -----patient has acute on chronic severe back pain although appears neurologically intact. He has a Rea catheter this time and urine output is good. He has not had any bowel incontinence. Sensation to dull and sharp are intact. CT of the abdomen and pelvis with contrast demonstrated enlargement of the left iliacus muscle with fat stranding likely secondary to intramuscular hematoma, severe lumbar spondylosis, anterior and posterior fusions from the L2 and L3 and lumbar levoscoliosis. The patient was on Lovenox (prophylactic dose) here as he has a history of DVT but because of the hematoma and the severe pain, this will be stopped and will do SCDs and get him back on Lovenox as soon as we can. I am wondering if this will help his pain. The patient does have chronic back pain and does not seen pain management but takes [place] at home. He denies saddle anesthesia or radiculopathy and his sensation is intact. He does describe it as a burning pain. Straight leg raise is positive on both sides. He was started on methylprednisolone 60mgQ6. No CRP done on admission, will draw. Pt has been unable to do an MRI here because of his size and claustrophobia. Will consult neurology. Previous provider discussed the case with Dr Brandon, Fellow on behalf of his attending Dr Kelli Lee with [facility] who have agreed to see Mr. Slaughter in consultation. She also spoke to Dr Omar Magaña with the hospitalist team who has accepted the patient in transfer 02/25. Afebrile. No respiratory symptoms. No recent sick contacts or known exposure to any COVID positive persons. He is hemodynamically stable for transfer to [facility] at this time. (2) Anemia: Qualifiers: Anemia type: unspecified type Qualified Code(s): D64.9 - Anemia, unspecified Code(s): D64.9 - Anemia, unspecified Status: Acute Assessment and Plan: -----Hgb 10.2 today. Will continue to hold his home Eliquis for now given hematoma and hematuria. (3) History of DVT (deep vein thrombosis): Code(s): Z86.718 - Personal history of other venous thrombosis and embolism Status: Chronic Assessment and Plan: -----On long-term Eliquis for history of DVT, held at this time. Will repeat LE u/s to see if clots still remain. (4) Constipation: Qualifiers: Constipation type: unspecified constipation type Qualified Code(s): K59.00 - Constipation, unspecified Code(s): K59.00 - Constipation, unspecified Status: Resolved Assessment and Plan: -----Likely d/t to narcotics. He was treated with Relistor; continue miralax and dulcolax. 1 large BM yesterday (5) Urinary retention: Code(s): R33.9 - Retention of urine, unspecified Status: Acute Assessment and Plan: ----Urine culture is negative. Rea catheter is intact. (6) Intramuscular hematoma: Code(s): T14.8XXA - Other injury of unspecified body region, initial encounter Status: Acute Assessment and Plan: ----CT showed enlargement of left iliacus muscle with adjacent fat stranding, most likely secondary to isodense intramuscular hematoma. This may be from his fall a few weeks ago and what is causing his pain. No ecchymosis noted in the area. This may be in part causing his discomfort. Continue supportive care and monitor H&H. (7) Abnormal urinalysis: Code(s): R82.90 - Unspecified abnormal findings in urine Status: Acute Assessment and Plan: ----Hematuria noted. Urine culture negative. (8) Mouth pain: Code(s): K13.79 - Other lesions of oral mucosa Status: Acute Assessment and Plan: ----Patient notes oral pain for weeks . Notes PCP has him on oral abx for a dental infection. Obtained CT face to evaluate for abscess - n
[2020-02-27] MEDS: KETOROLAC 30 MG/ML VIAL (*BKC) IM (13:06)
[2020-02-27 13:20] LABS: CRP 13.7 mg/dL (<1.0)
[2020-02-27 14:00] VITALS: BP 161/79; PULSE 88; RESP 22; TEMP 36.3; O2SAT 94
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
[2020-02-27] MEDS: CENTRAL LINE FLUSH 10 ML IV PUSH ×2 (16:08→20:48)
[2020-02-27] MEDS: MELATONIN 3 MG TABLET PO (20:44)
[2020-02-27] MEDS: traZODone HCL 50 MG TABLET PO (20:45)
[2020-02-27 21:17] VITALS: BP 105/61; PULSE 61; RESP 20; TEMP 36.2; O2SAT 98
[2020-02-27 21:58] VITALS: BP 105/61; PULSE 61; RESP 20; TEMP 36.2; O2SAT 98
--- NOTE | 2020-02-27 22:13 | PC.NURSE ---
Report given to Bailey Reynolds at [facility] at 2049. [facility] arrived to transfer patient via stretcher at 2229. Luz at [facility] notified that patient was on the way and received a norco prior to transfer.
== END 2020-02-27 22:35 | disposition short-term general hospital (02) ==
LOC: ANHED 10:40 → ANH2MED 16:38
PROVIDERS: Nurse Practitioner; Physician Assistant; Admitting Provider Internal Medicine; Emergency Provider General Practice; PCP Family Medicine; Visit Provider Physician Assistant
DX: M54.5 Low back pain (principal); Z98.1 Arthrodesis status; M54.16 Radiculopathy, lumbar region; T14.8XXA Other injury of unspecified body region, initial encounter; E66.01 Morbid (severe) obesity due to excess calories; Z68.43 Body mass index [BMI] 50.0-59.9, adult; F40.240 Claustrophobia; D64.9 Anemia, unspecified; Z86.718 Personal history of other venous thrombosis and embolism; K59.00 Constipation, unspecified; R33.9 Retention of urine, unspecified; R82.90 Unspecified abnormal findings in urine; K13.79 Other lesions of oral mucosa; M79.671 Pain in right foot; D72.829 Elevated white blood cell count, unspecified; F17.210 Nicotine dependence, cigarettes, uncomplicated; F17.290 Nicotine dependence, other tobacco product, uncomplicated; Z79.01 Long term (current) use of anticoagulants; Z79.82 Long term (current) use of aspirin; Z79.899 Other long term (current) drug therapy
CPT/HCPCS: 36415; 36569; 51703; 70487; 71045; 72133; 73620; 74176; 80048; 80053; 80307; 81001; 82274; 82550; 83605; 83690; 83735; 85014; 85018; 85025; 85610; 85730; 86140; 87086; 93970; 96361; 96372; 96374; 96375; 96376; 97165; 99285; A9270; C1751; G0378; J1170; J1650; J1885; J2060; J2212; J2405; J2930; J7120; J7512; Q9967

== ENCOUNTER 2020-04-20 18:12 | Emergency (ER) | payer MEDICARE, MEDICAID, SELFPAY ==
--- NOTE | ~2020-04-20 | XR_ITS ---
XR chest 1V portable DATE: 04/20/2020 19:16 INDICATION: PICC line placement TECHNIQUE: Portable AP chest on 04/20/2020 at 1911 hours COMPARISON: 02/24/2020 AP chest FINDINGS: Right upper extremity PIC catheter appears to terminate in the region of the right subclavi an vein. Moderate elevation right hemidiaphragm. Bibasilar infiltrate and/atelectasis, right greater than left . There is some left suprahilar area. Infiltrate. No pleural effusion or pneumothorax. IMPRESSION: Right upper extremity PIC catheter tip is not well demonstrated, apparently in the right subclavian vein Reviewed, dictated and finalized at location A. IMPRESSION: Right upper extremity PIC catheter tip is not well demonstrated, ap parently in the right subclavian vein
[2020-04-20 18:26] VITALS: BP 129/104; PULSE 118; RESP 20; TEMP 36.6; O2SAT 98
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
[2020-04-20 20:16] VITALS: BP 134/90; PULSE 102; RESP 18; O2SAT 99
[2020-04-20] MEDS: HEPARIN SOD FLUSH 500 UNITS/5 ML SYRINGE (20:57)
== END 2020-04-20 21:03 | disposition left against medical advice (07) ==
PROVIDERS: Emergency Provider Emergency Medicine; PCP Family Medicine
DX: Z45.2 Encounter for adjustment and management of vascular access device (principal); B99.9 Unspecified infectious disease; Z86.718 Personal history of other venous thrombosis and embolism; K21.9 Gastro-esophageal reflux disease without esophagitis; Z98.84 Bariatric surgery status; F17.290 Nicotine dependence, other tobacco product, uncomplicated; F32.9 Major depressive disorder, single episode, unspecified; Z79.01 Long term (current) use of anticoagulants
CPT/HCPCS: 71045; 99283

== ENCOUNTER 2020-05-06 14:35 | Emergency (ER) | payer MEDICARE, MEDICAID, SELFPAY ==
[2020-05-06 14:54] VITALS: BP 138/88; PULSE 113; RESP 18; TEMP 35.5; O2SAT 97
[2020-05-06 15:53] LABS: Basophils Absolute Auto 0.1 K/mm3 (0.0-0.1); Basophils Percent Auto 0.6 % (0.2-1.2); Eosinophils Absolute Auto 0.1 K/mm3 (0-0.3); Hematocrit 38.6 % (42.0-52.0); Hemoglobin 11.8 g/dL (14.0-18.0); Immature Granulocyte Absolute 0.03 K/mm3 (0.00-0.031); Immature Granulocyte Percent A 0.3 % (0-0.5); Lymphocytes Absolute Auto 2.05 K/mm3 (0.9-3.2); Lymphocytes Percent Auto 21.6 % (18.3-44.2); Mean Corpuscular HGB Conc 30.6 g/dl (32-36); Mean Platelet Volume 10.1 fl (7.4-10.4); Monocytes Absolute Auto 0.6 K/mm3 (0.1-0.6); Monocytes Percent Auto 5.8 % (2.6-8.5); Neutrophils Absolute Auto 6.7 K/mm3 (1.3-6.7); Neutrophils Percent Auto 70.7 % (45.5-73.1); Platelet Count Result 247 k/mm3 (150-375); Red Blood Count 4.54 M/mm3 (4.6-6.20); Red Cell Distribution Width 16.1 % (11.5-14.5); White Blood Count 9.5 K/mm3 (4.5-10.0)
[2020-05-06 16:03] LABS: Lactic Acid Reflex 1.3 mmol/L (0.7-2.1)
[2020-05-06 16:04] LABS: Alanine Aminotransferase 11 U/L (4-50); Albumin Level 3.8 g/dL (3.5-5.1); Alkaline Phosphatase 97 U/L (38-126); Anion Gap 10 mmol/L (8-16); Aspartate Amino Transferase 18 U/L (17-59); Bilirubin,Total 0.2 mg/dL (0.2-1.3); Blood Urea Nitrogen 13 mg/dL (9-20); Calcium 9.3 mg/dL (8.4-10.2); Carbon Dioxide 26 mmol/L (22-30); Chloride 107 mmol/L (98-107); Estimated CRCL calculation 152 ml/min; Estimated Glomerular Filt Rate > 60; Glucose 124 mg/dL (75-110); Potassium 3.6 mmol/L (3.4-5.0); Sodium 143 mmol/L (137-145)
--- NOTE | 2020-05-06 16:13 | ED.GENADULT ---
HPI - General Adult General Chief complaint: Unspecified Stated complaint: spinal infection, back pain Time Seen by Provider: 05/06/20 15:09 Source: patient Mode of arrival: ambulatory Limitations: no limitations History of Present Illness HPI narrative: Patient states that he was discharged to a [facility] from [facility] in December so that we cannot receive IV antibiotics and pain control for a lumbar infection. Patient states that he is greatly improved and now ambulate and take care of himself so he told his primary care doctor recommended sending him home and have home health. Patient states that he was told that the easiest way to do this was to come to the emergency department. Patient does not have any fever, chills, nausea, vomiting, diarrhea. Patient does not have any signs of worsening condition or open draining infection. Related Data Home Medications Medication Instructions Recorded Confirmed gabapentin QID 05/06/20 Allergies Allergy/AdvReac Type Severity Reaction Status Date / Time ciprofloxacin [From Cipro] Allergy Rash Verified 05/06/20 15:04 Review of Systems Review of Systems: Narrative: CONSTITUTIONAL: Denies fever, chills, or sweats. EYES: Denies visual changes, redness, or discharge. ENT: Denies rhinorrhea, congestion, sore throat, or otalgia. CARDIOVASCULAR: Denies chest pain, palpitations, or edema. RESPIRATORY: Denies cough or dyspnea. GASTROINTESTINAL: Denies abdominal pain, nausea, vomiting, or diarrhea. GENITOURINARY: Denies dysuria or hematuria. SKIN: Denies rash or itching. MUSCULOSKELETAL: Reports chronic back pain, denies myalgia, or joint pain NEUROLOGIC: Denies headache, numbness, dizziness, or weakness. PSYCHIATRIC: Denies anxiety or depression. [facility] Past Medical History Medical History (Updated 05/06/20 @ 16:22 by Marc Kang PA-C) Cellulitis Discitis Social History Social History Gender identity (if verbalized by the patient): Male Exam Narrative: Exam Narrative: GENERAL: Well-appearing, well-nourished. Obese. HEAD: Normocephalic, atraumatic. EYES: PERRLA and EOMI. ENT: Nares clear, no rhinorrhea or epistaxis. Mucous membranes moist. Oropharynx without tonsillar hypertrophy exudate or other lesions. Bilateral TMs pearly cotto nonbulging NECK: Supple. No adenopathy or masses. No vertebral tenderness or loss of ROM. CHEST: Clear to auscultation. No respiratory distress. No wheezes rales or rhonchi HEART: Regular rate and rhythm. Normal peripheral pulses. BACK: No outward signs of swelling, erythema, ecchymosis no open draining wounds. ABDOMEN: Soft, nontender, nondistended, normal active bowel sounds. No bruises noted. EXTREMITIES: No acute changes in ROM. No edema. SKIN: Warm, dry, no rash. NEURO: No focal deficits. Alert and oriented x3. PSYCH: Normal mood and affect. Course Vital Signs Vital signs: Vital Signs Temperature 96 F L 05/06/20 14:54 Pulse Rate 113 H 05/06/20 14:54 Respiratory Rate 18 05/06/20 14:54 Blood Pressure 138/88 05/06/20 14:54 Pulse Oximetry 97 05/06/20 14:54 Temperature 96 F L 05/06/20 14:54 Pulse Rate 90 05/06/20 16:50 Respiratory Rate 18 05/06/20 16:50 Blood Pressure 168/90 H 05/06/20 16:50 Pulse Oximetry 97 05/06/20 16:50 Medical Decision Making [facility] Narrative Medical decision making narrative: Patient is vital signs and blood work do not show sepsis. Patient instructed to return to the [facility] or contact his primary care for continuation of his prescribed medications and/or home health orders. Differential Diagnosis Differential Diagnosis: Sepsis, cellulitis, abscess Vital Signs Vital Signs: Vital Signs Temperature 96 F L 05/06/20 14:54 Pulse Rate 113 H 05/06/20 14:54 Respiratory Rate 18 05/06/20 14:54 Blood Pressure 138/88 05/06/20 14:54 Pulse Oximetry 97 05/06/20 14:54 Temperature 96 F L 05/06/20 14:54 Pulse Rate 90 05/06/20 16:50 Respirat
[2020-05-06 16:50] VITALS: BP 168/90; PULSE 90; RESP 18; O2SAT 97
[2020-05-06] MEDS: HEPARIN SOD FLUSH 500 UNITS/5 ML SYRINGE 1000 UNITS (16:55)
== END 2020-05-06 16:50 | disposition home or self-care (01) ==
PROVIDERS: Physician Assistant; Emergency Provider Emergency Medicine; PCP Family Medicine
DX: M54.9 Dorsalgia, unspecified (principal)
CPT/HCPCS: 36415; 80053; 83605; 85025; 99283

== ENCOUNTER 2020-05-13 20:41 | Emergency (ER) | payer MEDICARE, MEDICAID, SELFPAY ==
--- NOTE | ~2020-05-13 | CT_ITS ---
EXAMINATION: CT abdomen pelvis wo con DATE: 05/13/2020 22:05 INDICATION: Right lower quadrant abdominal pain. TECHNIQUE: Computed tomography (CT) of the abdomen and pelvis was performed without intravenous contr ast. Automated exposure control and iterative reconstruction technique were employed. The dose-length product was 1522.17 mGy-cm. COMPARISON: CT abdomen and pelvis 02/24/2020 FINDINGS: The visualized portions of the lung bases demonstrate groundglass opacities in tree-in-bud opacities in the right middle lobe, lingula, and lower lobes, consistent with pneumonia. Calcified ri ght lung nodules are in calcified right hilar lymph nodes are consistent with old granulomatous disea se. No pleural effusion. The heart size is normal. No pericardial effusion. There is a small sliding hiatal hernia. There are surgical changes of the stomach. The liver is normal. There are changes of c holecystectomy. The spleen, pancreas, adrenal glands, and kidneys are normal. There is no urolithiasi s. There is a dilated loop of small bowel. The appendix is normal. There is a mildly enlarged left ex ternal iliac lymph node, likely reactive. There is no free intraperitoneal fluid. There are changes o f posterior fusion procedure at L2-L3. There is levoscoliosis of lumbar spine. There are endplate ero sions at L1-L2 with vacuum disc phenomenon. The left L2 screw extends beyond the superior endplate of L2. There is chronic anterior wedging of T12 vertebral body. There are erosions at the left sacroili ac joint, consistent with septic arthritis. IMPRESSION: 1. Septic arthritis of left sacroiliac joint, new from 02/24/20. 2. Worsened erosions of L1-L2 endplates with left L2 pedicle screw extending superior to the endplate margin, consistent with pseudoarthrosis. Discitis/osteomyelitis cannot be excluded. 3. Multifocal pneumonia. 4. Dilated loop of small bowel without focal transition point, likely adynamic ileus. Reviewed, dictated and finalized at location A. SAW FILER IMPRESSION: 1. Septic arthritis of left sacroiliac joint, new from 02/24/20. 2. Worsened erosions of L1-L2 endplates with left L2 pedicle screw extending spivey perior to the endplate margin, consistent with pseudoarthrosis. Discitis/osteom yelitis cannot be excluded. 3. Multifocal pneumonia. 4. Dilated loop of small bowel without focal transition point, likely adynamic ileus.
[2020-05-13 20:43] VITALS: BP 124/73; PULSE 107; RESP 18; TEMP 36.1; O2SAT 98
--- NOTE | 2020-05-13 21:16 | ED.GENADULT ---
HPI - General Adult General Chief complaint: Unspecified Stated complaint: RLQ abd pain Time Seen by Provider: 05/13/20 21:16 History of Present Illness HPI narrative: 45 yo morbidly obese male w/ h/o osteomyelitis presents to the ED with RLQ abdominal pain. He says that he has had the pain for more than 1 month. Worse today. Exacerbating by standing. No nausea vomiting, diarrhea, dysuria. He has had 2 recent hospitalizations for osteomyelitis and is currently supposed to be on IV antibiotics, but has not gotten that set up with home health yet. His PCP says that she is working on it. Related Data Home Medications Medication Instructions Recorded Confirmed apixaban [Eliquis] 5 mg PO BID 02/24/20 02/25/20 aspirin 81 mg PO DAILY 02/24/20 02/24/20 clindamycin HCl 300 mg PO QID 02/24/20 02/24/20 cyclobenzaprine 10 mg PO TID 02/24/20 02/24/20 furosemide 40 mg PO DAILY 02/24/20 02/24/20 gabapentin 600 mg PO TID 02/24/20 02/24/20 hydrocodone-acetaminophen 1 tablet PO Q4-5H PRN 02/24/20 02/24/20 ibuprofen 800 mg PO TID 02/24/20 02/24/20 melatonin 3 mg PO HS 02/24/20 02/24/20 multivitamin 1 tablet PO DAILY 02/24/20 02/24/20 naloxone [Narcan] 1 spray INTRANASAL PRN PRN 02/24/20 02/24/20 pantoprazole 40 mg PO DAILY 02/24/20 02/24/20 potassium chloride 20 meq PO DAILY 02/24/20 02/24/20 tizanidine [Zanaflex] 4 mg PO QID PRN 02/24/20 02/24/20 trazodone 50 mg PO HS 02/24/20 02/24/20 gabapentin QID 05/06/20 hydromorphone [Dilaudid] 4 mg PO Q6H 05/13/20 metronidazole [Flagyl] 05/13/20 Allergies Allergy/AdvReac Type Severity Reaction Status Date / Time ciprofloxacin Allergy Intermediate Hives Verified 05/13/20 20:48 Contrast Media Allergy Intermediate Itching Uncoded 05/13/20 20:48 Review of Systems Review of Systems: All systems reviewed & are unremarkable except as noted in HPI and below Constitutional: Constitutional: Denies body ache(s) and Denies fever(s) Cardiovascular: Cardiovascular: Denies chest pain Respiratory: Respiratory: Denies dyspnea Gastrointestinal: Gastrointestinal: Reports abdominal pain Genitourinary: Genitourinary: Denies hematuria and Denies dysuria Musculoskeletal: Musculoskeletal: Reports back pain Neurologic: Denies paresthesias PMFSH Past Medical History Medical History Cellulitis Discitis History of depression History of DVT (deep vein thrombosis) History of gastroesophageal reflux (GERD) Lumbar radiculopathy Surgical History Surgical History History of gastric surgery sleeve History of incisional hernia repair Hx laparoscopic cholecystectomy Previous back surgery lumbar fusion L2-L3 Family History Family History Mother Melanoma Father Brain cancer Grandparent Myocardial infarction Social History Social History Social History: the patient stated that he was 3 times. He was 1 time. the patient lives with his grandmother. He stated that he smokes a pack a cigarettes every 2 days. He denies any marijuana or illicit drugs. He does not have a durable power manpower development specialist manager for healthcare and he is a full code. The patient stated he is trying to quit smoking in uses E cigarettes Smoking status: Current every day smoker Tobacco type: e-cigarettes/vaping Alcohol intake: never Substance use: never Gender identity (if verbalized by the patient): Male Spiritual care concerns: No Exam Const: General: cooperative, comfortable and no acute distress Nutritional Appearance: obese morbidly obese HENMT: Head: normal to inspection Resp: Effort & Inspection: normal respiratory effort Auscultation: clear to auscultation bilaterally Cardio: Rate: regular rate Rhythm: regular rhythm GI: GI Palp: Yes abdominal tenderness (point tende
[2020-05-13 23:00] VITALS: BP 138/72
--- NOTE | 2020-05-14 00:41 | PC.NURSE ---
Patient refused xray to see placement of PICC before ED flushed it per patient's request.
== END 2020-05-14 00:46 | disposition home or self-care (01) ==
PROVIDERS: Emergency Provider Emergency Medicine; PCP Family Medicine
DX: R10.31 Right lower quadrant pain (principal); M86.9 Osteomyelitis, unspecified; E66.01 Morbid (severe) obesity due to excess calories; Z68.42 Body mass index [BMI] 45.0-49.9, adult; Z79.82 Long term (current) use of aspirin; Z79.01 Long term (current) use of anticoagulants; Z86.718 Personal history of other venous thrombosis and embolism; K21.9 Gastro-esophageal reflux disease without esophagitis; Z98.84 Bariatric surgery status; F17.210 Nicotine dependence, cigarettes, uncomplicated
CPT/HCPCS: 74176; 99284

== ENCOUNTER 2021-08-31 10:56 | Emergency (ER) | payer MEDICARE, MEDICAID, SELFPAY ==
[2021-08-31 11:12] VITALS: BP 119/87; PULSE 91; RESP 16; TEMP 36.4; O2SAT 97
--- NOTE | 2021-08-31 11:45 | PC.NURSE ---
POLINA Sawyer evaluated patient and requested patient to have sitter placed at bedside as well as have patient's belongings collected. Patient was notified of plan of care to have blood drawn and obtain a urine specimen. Patient began to scream and became belligerent towards staff. Patient uncooperative and eventually threw belongings at staff. Patient stating I can't be here I have papers to write and things to do. ANSELMO Roberts in room and was able to redirect patient.
--- NOTE | 2021-08-31 11:46 | ED.PSYCH ---
HPI - Psych General Chief Complaint: Psychiatric Symptoms <Digna Hudson APRN - Last Filed: 08/31/21 18:21> Stated Complaint: SI <Digna Hudson APRN - Last Filed: 08/31/21 18:21> Time Seen by Provider: 08/31/21 11:01 <Digna Hudson APRN - Last Filed: 08/31/21 18:21> Source: patient <Digna Hudson APRN - Last Filed: 08/31/21 18:21> History of Present Illness HPI Narrative: 46 year old male presents today via EMS with concerns of suicidal statement. Patient brought her by ems. PD was called to patients [place] concerning a suicidal statement. Per patient he was on a video chat with his instructor and was upset about a grade he was given. Patient states he told her you could cause someone to want to hurt themselves. Patient denies SI/HI. Denies thoughts of self harm. Does admit to a psychiatric history of depression but unsure of any other diagnosis. Patient refuses to take medications says they do not help him and he can do it on his own. <Digna Hudson APRN - Last Filed: 08/31/21 18:21> Related Data Home Medications: Home Medications Medication Instructions Recorded Confirmed apixaban [Eliquis] 5 mg PO BID 02/24/20 02/25/20 aspirin 81 mg PO DAILY 02/24/20 02/24/20 clindamycin HCl 300 mg PO QID 02/24/20 02/24/20 cyclobenzaprine 10 mg PO TID 02/24/20 02/24/20 furosemide 40 mg PO DAILY 02/24/20 02/24/20 gabapentin 600 mg PO TID 02/24/20 02/24/20 hydrocodone-acetaminophen 1 tablet PO Q4-5H PRN 02/24/20 02/24/20 ibuprofen 800 mg PO TID 02/24/20 02/24/20 melatonin 3 mg PO HS 02/24/20 02/24/20 multivitamin 1 tablet PO DAILY 02/24/20 02/24/20 naloxone [Narcan] 1 spray INTRANASAL PRN PRN 02/24/20 02/24/20 pantoprazole 40 mg PO DAILY 02/24/20 02/24/20 potassium chloride 20 meq PO DAILY 02/24/20 02/24/20 tizanidine [Zanaflex] 4 mg PO QID PRN 02/24/20 02/24/20 trazodone 50 mg PO HS 02/24/20 02/24/20 gabapentin QID 05/06/20 hydromorphone [Dilaudid] 4 mg PO Q6H 05/13/20 metronidazole [Flagyl] 05/13/20 <Digna Hudson POLE CUTTER - Last Filed: 08/31/21 18:21> Allergies/Adverse Reactions: Allergies Allergy/AdvReac Type Severity Reaction Status Date / Time ciprofloxacin Allergy Intermediate Hives Verified 08/31/21 11:25 Contrast Media Allergy Intermediate Itching Uncoded 08/31/21 11:25 <Digna Hudson APRN - Last Filed: 08/31/21 18:21> Review of Systems Constitutional: Constitutional: Reports as per HPI <Digna Hudson APRN - Last Filed: 08/31/21 18:21> Gastrointestinal: Gastrointestinal: Reports no additional gastrointestinal complaints <Digna Hudson APRN - Last Filed: 08/31/21 18:21> Genitourinary: Genitourinary: Reports no additional male genitourinary complaints <Digna Hudson APRN - Last Filed: 08/31/21 18:21> Musculoskeletal: Musculoskeletal: Reports no additional musculoskeletal complaints <Digna Hudson APRN - Last Filed: 08/31/21 18:21> Psychiatric: Psychiatric: Reports as per HPI <Digna Hudson APRN - Last Filed: 08/31/21 18:21> PMFSH Past Medical History Medical History: Medical History Cellulitis Discitis History of depression History of DVT (deep vein thrombosis) History of gastroesophageal reflux (GERD) Lumbar radiculopathy <Digna Hudson APRN - Last Filed: 08/31/21 18:21> Surgical History Surgical History: Surgical History History of gastric surgery sleeve History of incisional hernia repair Hx laparoscopic cholecystectomy Previous back surgery lumbar fusion L2-L3 <Digna Hudson APRN - Last Filed: 08/31/21 18:21> Family History Family History: Family History Mother Melanoma Father Brain cancer Grandparent Myocardial infarction <Digna Hudson APRN - Last Filed: 08/31/21 18:21> Social History Social History: Social History (Revi
[2021-08-31 12:28] LABS: Basophils Percent Auto 0.5 % (0.2-1.2); Eosinophils Absolute Auto 0.2 K/mm3 (0-0.3); Eosinophils Percent Auto 2.3 % (0-4.4); Hematocrit 41.6 % (42.0-52.0); Hemoglobin 13.2 g/dL (14.0-18.0); Immature Granulocyte Absolute 0.02 K/mm3 (0.00-0.031); Immature Granulocyte Percent A 0.3 % (0-0.5); Lymphocytes Absolute Auto 0.98 K/mm3 (0.9-3.2); Lymphocytes Percent Auto 12.6 % (18.3-44.2); Mean Corpuscular HGB Conc 31.7 g/dl (32-36); Mean Corpuscular Hemoglobin 27.6 pg (26-34); Mean Corpuscular Volume 86.8 fl (80-100); Mean Platelet Volume 10.1 fl (7.4-10.4); Monocytes Absolute Auto 0.5 K/mm3 (0.1-0.6); Monocytes Percent Auto 6.3 % (2.6-8.5); Neutrophils Absolute Auto 6.1 K/mm3 (1.3-6.7); Platelet Count Result 214 k/mm3 (150-375); Red Blood Count 4.79 M/mm3 (4.6-6.20); Red Cell Distribution Width 14.6 % (11.5-14.5); White Blood Count 7.8 K/mm3 (4.5-10.0)
--- NOTE | 2021-08-31 12:34 | PC.NURSE ---
Patient stating, I am going to shit on the floor and throw it at you when asked to give a urine specimen.
[2021-08-31 12:40] LABS: Alanine Aminotransferase 12 U/L (4-50); Alkaline Phosphatase 115 U/L (38-126); Anion Gap 5 mmol/L (8-16); Aspartate Amino Transferase 27 U/L (17-59); Bilirubin,Total 0.4 mg/dL (0.2-1.3); Blood Urea Nitrogen 10 mg/dL (9-20); Calcium 9.2 mg/dL (8.4-10.2); Carbon Dioxide 31 mmol/L (22-30); Chloride 104 mmol/L (98-107); Estimated CRCL calculation 142 ml/min; Estimated Glomerular Filt Rate > 60; Glucose 107 mg/dL (65-110); Potassium 4.4 mmol/L (3.4-5.0); Sodium 140 mmol/L (137-145)
[2021-08-31 12:42] LABS: Acetaminophen < 10 ug/mL (10-30); Ethanol < 10 mg/dL (<10); Salicylate < 1.0 mg/dL (2-20)
[2021-08-31 13:23] LABS: Amphetamine Screen Urine Negative (Negative); Barbiturate Screen Urine Negative (Negative); Benzodiazepines Screen Urine Negative (Negative); Cannabinoid Screen Urine Negative (Negative); Cocaine Screen Urine Negative (Negative); Methadone Screen Urine Negative (Negative); Opiate Screen Urine Negative (Negative); Phencyclidine Screen Urine Negative (Negative)
[2021-08-31 13:28] LABS: Add Urine Microscopic? NO; Appearance Urine Clear (Clear); Bilirubin Urine Negative (Negative); Blood Urine Negative (Negative); Color Urine Yellow (Yellow); Glucose Urine UA Negative (Negative); Ketones Urine Negative (Negative); Leukocyte Esterase Ur Negative LEU/UL (Negative); Nitrate Urine Negative (Negative); Protein Urine Negative (Negative); Specific Grav Ur 1.017 (1.001-1.035); Urobilinogen Urine Negative mg/dL (<2.0)
== END 2021-08-31 15:47 | disposition home or self-care (01) ==
PROVIDERS: Emergency Provider Nurse Practitioner Family; PCP Family Medicine
DX: F32.A Depression, unspecified (principal); K21.9 Gastro-esophageal reflux disease without esophagitis; F17.210 Nicotine dependence, cigarettes, uncomplicated; F17.290 Nicotine dependence, other tobacco product, uncomplicated; Z86.718 Personal history of other venous thrombosis and embolism; Z79.01 Long term (current) use of anticoagulants; Z79.82 Long term (current) use of aspirin; Z79.899 Other long term (current) drug therapy
CPT/HCPCS: 36415; 80053; 80307; 81003; 84443; 85025; 99284

== ENCOUNTER 2022-12-10 08:47 | Emergency (ER) | payer MEDICARE, MEDICAID, SELFPAY ==
[2022-12-10 08:50] VITALS: BP 127/89; PULSE 69; RESP 16; TEMP 36.4; O2SAT 95
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
--- NOTE | 2022-12-10 10:00 | PC.NURSE ---
pt refusing labs. spoke with crisis who was in the dept for another pt
--- NOTE | 2022-12-10 10:36 | PC.NURSE ---
Safety contract and d/c papers handed to patient.
== END 2022-12-10 10:37 ==
PROVIDERS: Emergency Provider Physician Assistant; PCP Family Medicine
DX: G89.21 Chronic pain due to trauma (principal); K21.9 Gastro-esophageal reflux disease without esophagitis; F32.A Depression, unspecified; F17.290 Nicotine dependence, other tobacco product, uncomplicated; Z86.718 Personal history of other venous thrombosis and embolism; Z98.84 Bariatric surgery status; Z98.1 Arthrodesis status; Z79.01 Long term (current) use of anticoagulants; Z79.82 Long term (current) use of aspirin
CPT/HCPCS: 99284

== ENCOUNTER 2022-12-12 16:12 | Emergency (ER) | payer MEDICARE, MEDICAID, SELFPAY ==
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
--- NOTE | 2022-12-12 16:44 | PC.NURSE ---
violent restraints placed on bed but not used on pt.
[2022-12-12 16:55] VITALS: BP 160/115; PULSE 117; RESP 18; TEMP 37.1; O2SAT 97
[2022-12-12] MEDS: diphenhydrAMINE HCl INJ 50 MG/ML VIAL IM (17:00)
[2022-12-12] MEDS: LORazepam INJ (*CRX) 2 MG/ML VIAL 0.5 MG IM (17:12)
[2022-12-12] MEDS: HALOPERIDOL LACTATE 5 MG/ML VIAL IM ×3 (17:12→23:58)
[2022-12-12 17:35] LABS: Basophils Absolute Auto 0.1 K/mm3 (0.0-0.1); Basophils Percent Auto 0.8 % (0.2-1.2); Eosinophils Absolute Auto 0.1 K/mm3 (0-0.3); Hemoglobin 15.1 g/dL (14.0-18.0); Immature Granulocyte Absolute 0.02 K/mm3 (0.00-0.031); Immature Granulocyte Percent A 0.2 % (0-0.5); Lymphocytes Absolute Auto 2.21 K/mm3 (0.9-3.2); Lymphocytes Percent Auto 23.2 % (18.3-44.2); Mean Corpuscular HGB Conc 32.8 g/dl (32-36); Mean Corpuscular Hemoglobin 29.2 pg (26-34); Mean Corpuscular Volume 88.8 fl (80-100); Mean Platelet Volume 10.7 fl (7.4-10.4); Monocytes Absolute Auto 0.8 K/mm3 (0.1-0.6); Monocytes Percent Auto 8.2 % (2.6-8.5); Neutrophils Absolute Auto 6.4 K/mm3 (1.3-6.7); Neutrophils Percent Auto 66.6 % (45.5-73.1); Platelet Count Result 218 k/mm3 (150-375); Red Blood Count 5.18 M/mm3 (4.6-6.20); Red Cell Distribution Width 14.6 % (11.5-14.5); White Blood Count 9.5 K/mm3 (4.5-10.0)
[2022-12-12 17:44] LABS: Acetaminophen < 10 ug/mL (10-30); Anion Gap 10 mmol/L (8-16); Blood Urea Nitrogen 16 mg/dL (9-20); Calcium 9.1 mg/dL (8.4-10.2); Carbon Dioxide 22 mmol/L (22-30); Chloride 108 mmol/L (98-107); Estimated CRCL calculation 146 ml/min; Estimated Glomerular Filt Rate > 60; Ethanol < 10 mg/dL (<10); Glucose 101 mg/dL (65-110); Potassium 3.7 mmol/L (3.4-5.0); Salicylate < 1.0 mg/dL (2-20); Sodium 140 mmol/L (137-145)
--- NOTE | 2022-12-12 18:23 | PC.NURSE ---
GLADIS from [facility] stated that the pt was to be a direct admit to [facility]. Informed that staff member that that would be unlikely as the pt would have to be medically cleared prior to arrival. explained that their staff had the pt placed on ems stretcher and not told about plan to admit to [facility]. GLADIS also noted that the pt could not come back to their facility Spoke to Tanvi at [facility], they did have plan to admit the pt after being medically cleared in their ED. informed them that pt was in our ER. Tanvi asked for record to be sent to [facility] after being medically cleared. Psych eval has already been completed by [facility] intake dept, so they don't need Crisis to see the pt. [phone] ask for intake
--- NOTE | 2022-12-12 19:14 | PC.NURSE ---
Received a call from Ryan Palma from [facility],to request blood work, covid test and inpatient Certificate to be completed and faxed over to [facility] at fax # [phone], so pt can be admitted involuntary. She said they have a bed available and soon as they have all the requirements, pt will be admitted.
[2022-12-12 20:39] LABS: Influenza A QL RT-PCR Negative (Negative); Influenza B QL RT-PCR Negative (Negative); SARS-CoV-2 RNA PCR Negative (Negative)
--- NOTE | 2022-12-12 20:40 | PC.NURSE ---
rick [phone] fax [phone]; [facility]; f/u needs labs
--- NOTE | 2022-12-12 20:53 | PC.NURSE ---
patient refusing to urinate at this time, charge nurse notified
[2022-12-12] MEDS: KETAMINE HCL (*CRX) 500 MG/10 ML VIAL 675 MG IM (22:20)
[2022-12-12 22:30] VITALS: BP 157/99; PULSE 110; RESP 14; O2SAT 96
[2022-12-12 22:50] VITALS: BP 157/100; PULSE 105; RESP 14; O2SAT 94
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
[2022-12-12] MEDS: diphenhydrAMINE HCl INJ 50 MG/ML VIAL 25 MG IM (23:58)
[2022-12-12] MEDS: LORazepam INJ (*CRX) 2 MG/ML VIAL IM (23:59)
--- NOTE | 2022-12-13 01:02 | PC.NURSE ---
patient continues to yell out, discussed removing restraints with patient and he made comments that he would remain aggressive if restraints removed
[2022-12-13 03:50] LABS: Hepatitis B Surface Antigen Negative (Negative)
[2022-12-13 04:35] LABS: HIV 1/2 Ab P24 Ag Result Negative (Negative); Hepatitis C Virus Antibody Reactive (Negative)
[2022-12-13] MEDS: SODIUM CHLORIDE 0.9% IV 1,000 ML 999 ML IV CONT ×2 (05:06→09:45)
--- NOTE | 2022-12-13 09:24 | PC.NURSE ---
Called [facility] and spoke with intake about urine. She states that they can not accept pt without the UA and drug screen.
[2022-12-13 09:45] VITALS: BP 158/109; PULSE 80; RESP 16; O2SAT 99
--- NOTE | 2022-12-13 09:49 | PC.NURSE ---
PT WOKEN UP BY DR SAL. REFUSED TO ROLL OVER AND TALK TO OR TO ATTEMPT TO URINATE. VS OBTAINED AND IVF INITIATED
--- NOTE | 2022-12-13 11:02 | PC.NURSE ---
PT RECEIVED 1L OF NS. WOKE UP AND ENCOURAGED TO PROVIDE A URINE SAMPLE. PT STATES HE STILL DOESN'T HAVE TO GO. DR SAL MADE AWARE. NO NEW ORDERS
[2022-12-13 12:33] LABS: Appearance Urine Clear (Clear); Bacteria Urine None Seen /hpf; Bilirubin Urine Negative (Negative); Blood Urine 2+ (Negative); Color Urine Dark Yellow (Yellow); Glucose Urine UA Negative (Negative); Ketones Urine Trace mg/dL (Negative); Leukocyte Esterase Ur Trace LEU/UL (Negative); Mucus Urine Present /lpf; Nitrate Urine Negative (Negative); Protein Urine Trace mg/dL (Negative); Squamous Epithelial Cell Urine None seen /hpf (Few); Urobilinogen Urine 0.2 mg/dL (<2.0)
[2022-12-13 12:38] LABS: Add Urine Microscopic? YES
[2022-12-13 12:42] LABS: Amphetamine Screen Urine Negative (Negative); Barbiturate Screen Urine Negative (Negative); Benzodiazepines Screen Urine Negative (Negative); Cannabinoid Screen Urine Negative (Negative); Cocaine Screen Urine Negative (Negative); Methadone Screen Urine Negative (Negative); Opiate Screen Urine Negative (Negative); Phencyclidine Screen Urine Negative (Negative)
--- NOTE | 2022-12-13 13:31 | PC.NURSE ---
FAXED URINE RESULTS AND INP CERT TO [facility]
[2022-12-13 14:45] VITALS: BP 133/80; PULSE 66; RESP 16; TEMP 36.5; O2SAT 100
[2022-12-13] MEDS: diphenhydrAMINE HCl INJ 50 MG/ML VIAL 25 MG IM (15:30)
[2022-12-13] MEDS: HALOPERIDOL LACTATE 5 MG/ML VIAL 10 MG IM (15:30)
[2022-12-13] MEDS: LORazepam INJ (*CRX) 2 MG/ML VIAL IM (15:30)
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
--- NOTE | 2022-12-13 15:41 | PC.NURSE ---
30MG TORADOL IM TO BE GIVEN VORB DR LEDA SAL FOR BACK PAIN
[2022-12-13] MEDS: KETOROLAC 30 MG/ML VIAL (*BKC) (15:42)
[2022-12-16 20:42] LABS: Hepatitis C RNA, Quant PCR <15 IU/mL
== END 2022-12-13 17:00 ==
PROVIDERS: Emergency Provider Emergency Medicine; PCP Family Medicine
DX: R45.850 Homicidal ideations (principal); R45.1 Restlessness and agitation; R45.4 Irritability and anger; K21.9 Gastro-esophageal reflux disease without esophagitis; F32.A Depression, unspecified; Z79.01 Long term (current) use of anticoagulants; Z79.82 Long term (current) use of aspirin; Z79.891 Long term (current) use of opiate analgesic; Z86.718 Personal history of other venous thrombosis and embolism; Z98.84 Bariatric surgery status; Z98.1 Arthrodesis status; Z79.899 Other long term (current) drug therapy; F17.290 Nicotine dependence, other tobacco product, uncomplicated; Z11.4 Encounter for screening for human immunodeficiency virus [HIV]; Z20.822 Contact with and (suspected) exposure to COVID-19
CPT/HCPCS: 36415; 80048; 80307; 81001; 84443; 85025; 86703; 86803; 87086; 87088; 87340; 87522; 87636; 96361; 96372; 96374; 99285; G0432; J1200; J1630; J1885; J2060; J7030

== ENCOUNTER 2024-06-23 11:07 | Outpatient (CLI) | payer MEDICARE, SELFPAY ==
[2024-06-23 12:27] LABS: Basophils Percent Auto 0.6 % (0.2-1.2); Eosinophils Absolute Auto 0.2 K/mm3 (0-0.3); Eosinophils Percent Auto 2.5 % (0-4.4); Hematocrit 40.7 % (42.0-52.0); Hemoglobin 12.6 g/dL (14.0-18.0); Immature Granulocyte Absolute 0.02 K/mm3 (0.00-0.031); Immature Granulocyte Percent A 0.3 % (0-0.5); Lymphocytes Absolute Auto 1.51 K/mm3 (0.9-3.2); Lymphocytes Percent Auto 21.2 % (18.3-44.2); Mean Corpuscular Hemoglobin 26.8 pg (26-34); Mean Corpuscular Volume 86.6 fl (80-100); Mean Platelet Volume 10.8 fl (7.4-10.4); Monocytes Absolute Auto 0.7 K/mm3 (0.1-0.6); Monocytes Percent Auto 9.8 % (2.6-8.5); Neutrophils Absolute Auto 4.7 K/mm3 (1.3-6.7); Neutrophils Percent Auto 65.6 % (45.5-73.1); Platelet Count Result 231 k/mm3 (150-375); Red Cell Distribution Width 16.8 % (11.5-14.5); White Blood Count 7.1 K/mm3 (4.5-10.0)
--- OUTSIDE RECORDS SUMMARY | 2024-06-23 12:34 | XMS_ITS | Patient Health Record ---
Author Organization [facility] Address [address] [place] [address] Care Team Providers Care Drafter Electrical Name Role Phone Dr. Victorino Patterson Primary Care Provider U navailable REASON FOR REFERRAL No Information MEDICATIONS Medication SIG (Take, Route, Frequency, Duration) Notes Start Date End Date Status Systemic medications reviewed and listed in pt's [facility] chart Active Multivitamin Adult - Orally Active No ocular meds Activ e SOCIAL HISTORY Tobacco Use: Social History Observation Description Date Details (start date - stop date) Former Smoker NA - NA Sex Assigned At : Social History Observation Description Sex Assigned At Unknown Smoking: Question Answer Notes Are you a: Former smoker PROBLEMS Problem Type ICD Code Onset Dates Problem Status W/U Status Risk SNOMED Code Notes Problem Cataract, NS, bilateral (H25.13) Active confirmed Nuclear senile cataract (191870631) OU, very mild, not significantly affecting vision Problem Blepharitis, right eye, unspecified eyelid (H01.023) Active confirmed 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, mild, pt denies symptoms Problem Blepharitis, left eye, unspecified eyelid (H01.026) Active confirmed Squamous blepharitis (58467284) OS, mild, pt denies symptoms PLAN OF TREATMENT No Information Insurance Providers Payer Name Payer Address Payer Phone Subscriber Number Group Number Insured Name Patient Relationship to Insured Coverage Start Date Coverage End Date [facility] Plan [address] [address] [place] [address] [phone] [id number] Moreno Reese Self - patient is the insured [place] [address] [place] [address] [phone] [id number] Moreno Reese Self - patient is the insured Medicare Claims Department [address] [address] [place] [address] [id number] Moreno Reese Self - patient is the insured MEDICAL (GENERAL) HISTORY Surgical History Surgery Date(Month/Year) Unknown Hospitalization History Reason Date(Month/Year) Unknown
--- OUTSIDE RECORDS SUMMARY | 2024-06-23 12:34 | XMS_ITS ---
Author Organization [facility] Address Unknown Allergies, Adverse Reactions, Alerts Substance Reaction Status Noted Date Resolved Date Iodine active 02/12/2023 Ciprofloxacin active 02/12/2023 Medications Medication Dose Frequency Directions Start Date End Seamus e MiraLax Oral Powder 17 GM/SCOOP 1 Give 1 scoop by mouth in the morning for constipation 02/16/2023 Tums Oral Tablet Chewable 500 MG 2 {tbl} Give 2 tablet by mouth every 6 hours as needed for gi upset 02/15/2023 Cymbalta Oral Capsule Delayed Release Particles 60 MG 1 {Capsule} Give 1 capsule by mouth in the evening for mood 02/16/2023 Albuterol Sulfate Inhalation Aerosol Powder Breath Activated 2 2 puff inhale or ally every 4 hours as needed for sob 02/15/2023 Imodium A-D Oral Tablet 2 MG 1 {tbl} Give 1 tablet by mouth as needed for diarrhea give 2 tablets after first loose stool then 1 for loose stool. Not to exceed 16mg in 24 hours 02/15/2023 MiraLax Oral Powder 17 GM/SCOOP 1 Give 1 scoop by mouth every 24 hours as needed for constipation 02/15/2023 Zofran Oral Tablet 4 MG 1 {tbl} Give 1 tablet by mouth every 8 hours as needed for nausea 02/15/2023 Protonix Oral Tablet Delayed Release 40 MG 1 {tbl} Give 1 tablet by mouth in the morning for heartburn 02/16/2023 Nicorette Mouth/Throat Gum 2 MG 2 mg Give 2 milligram by mouth every 2 hours as needed for smoking cessation 02/15/2023 Ibuprofen Oral Tablet 200 MG 2 {tbl} Give 2 tablet by mouth every 4 hours as needed for Pain 02/15/2023 Cepacol Mouth/Throat Lozenge 15-2.3 MG 1 Give 1 lozenge by mouth every 4 hours as needed for sore throat 02/15/2023 Topamax Oral Tablet 100 MG 1 {tbl} 12 h Give 1 tablet by mouth two times a day for migraines 02/16/2023 Milk of Magnesia Oral Suspension 400 MG/5ML 30 mL Give 30 ml by mout h every 24 hours as needed for constipation 02/15/2023 Eliquis Oral Tablet 5 MG 1 {tbl} 12 h Give 1 tablet by mouth two times a day for blood thinner 02/16/2023 Flomax Oral Capsule 0.4 MG 1 {Capsule} Give 1 capsule by mouth in the morning for prostate 02/16/2023 Invega Oral Tablet Extended Release 24 Hour 6 MG 1 {tbl} Give 1 tablet by mouth in the morning for mood 02/16/2023 Sulfamethoxazole-Trimet hoprim Oral Tablet 800-160 MG 1 {tbl} 12 h Give 1 tablet by mouth two times a day related to OTHER CHRONIC OSTEOMYELITIS, UNSPECIFIED SITE (M86.60) 02/16/2023 Tylenol Oral Tablet 325 MG 2 {tbl} Give 2 tablet by mouth every 4 hours as needed for fever > 100 degrees 02/15/2023 Neurontin Oral Tablet 600 MG 1 {tbl} 8 h Give 1 tablet by mouth three times a day for pain 03/09/2023 busPIRone HCl Oral Tablet 5 MG 1 {tbl} 8 h Give 1 tablet by mouth three times a day related to MAJOR DEPRESSIVE DISORDER, RECURRENT, UNSPECIFIED (F33.9) 04/01/2023 Docusate Sodium Oral Capsule 100 MG 2 {Capsule} Give 2 capsule by mouth at bedtime for constipation 04/02/2023 oxyCODONE-Acetaminophen Oral Tablet 10-325 MG 1 {tbl} Give 1 tablet by mouth every 6 hours as needed for Pain 06/08/2023 Cefadroxil Oral Capsule 500 MG 500 mg 12 h Give 500 mg by mouth two times a day for continued prophylactics infection control 06/27/2023 Muscle & Joint External Gel 2.5 % Apply to affected area topically every 6 hours as needed for pain 07/11/2023 Baclofen Oral Tablet 10 MG 1 {tbl} 8 h Give 1 tablet by mouth three times a day for muscle spasms/pain 07/23/2023 Cyclobenzaprine HCl ER Oral Capsule Extended Release 24 Hour 15 MG 1 {Capsule} Give 1 capsule by mouth in the morning for back pain r/t muscle spasms 09/02/2023 Lidocaine External Patch 5 % Apply to back,rt.knee rt. shoulder topically in the morning for pain 3 patches total may be applied per application; place in morning and remove at night 09/02/2023 Medications Administered Medication Dose Frequency Status Start Date End Date MiraLax Oral Powder 17 GM/SCOOP 1 Drug Refused 09/11/2023 Tums Oral Tablet Chewable 500 MG 2 {tbl} 02/15/2023 Cymbalta Oral Capsule Delayed Release Particles 60 MG 1 {Capsule} Drug Refused 09/10/2023 Albuterol Sulfate Inhalation Aerosol Powder Breath Activated 2 02/15/2023 Imodium A-D Oral Tablet 2 MG 1 {tbl} 07/31/2023 MiraLax Oral Powder 17 GM/SCOOP 1 02/15/2023 Zofran Oral Tablet 4 MG 1 {tbl} 2023 Protonix Oral Tablet Delayed Release 40 MG 1 {tbl} 09/11/2023 Nicorette Mouth/Throat Gum 2 MG 2 mg 02/15/2023 Ibuprofen Oral Tablet 200 MG 2 {tbl} 09/11/2023 Cepacol Mouth/Throat Lozenge 15-2.3 MG 1 02/15/2023 Topamax Oral Tablet 100 MG 1 {tbl} 12 h Other / See Progress Notes?? 09/11/2023 Milk of Magnesia Oral Suspension 400 MG/5ML 30 mL 06/24/2023 Eliquis Oral Tablet 5 MG 1 {tbl} 12 h 09/10 Flomax Oral Capsule 0.4 MG 1 {Capsule} 09/11/2023 Invega Oral Tablet Extended Release 24 Hour 6 MG 1 {tbl} Drug Refused 09/11/2023 Sulfamethoxazole-Trimetho prim Oral Tablet 800-160 MG 1 {tbl} 12 h 09/11/2023 Tylenol Oral Tablet 325 MG 2 {tbl} 02/15/2023 Neurontin Oral Tablet 600 MG 1 {tbl} 8 h Other / See Progress Notes?? 09/11/2023 busPIRone HCl Oral Tablet 5 MG 1 {tbl} 8 h Other / See Progress Notes?? 09/11/2023 Docusate Sodium Oral Capsule 100 MG 2 {Capsule} 09/11/2023 oxyCODONE-Acetaminophen Oral Tablet 10-325 MG 1 {tbl} 09/11/2023 Cefadroxil Oral Capsule 500 MG 500 mg 12 h 09/11/2023 Muscle & Joint External Gel 2.5 % 07/11/2023 Baclofen Oral Tablet 10 MG 1 {tbl} 8 h Other / See Progress Notes?? 09/11/2023 Cyclobenzaprine HCl ER Oral Capsule Extended Release 24 Hour 15 MG 1 {Capsule} Hold/See Progress Notes 09/11/2023 Lidocaine External Patch 5 % Hold/See Progress Notes 09/11/2023 Problems Problem Status Start Date End Date OSTEOMYELITIS OF [place], C ERVICAL REGION (Primary) (M46.22 - ICD-10-CM) ACTIVE 02/15/2023 OTHER CHRONIC OSTEOMYELITIS, UNSPECIFIED SITE (M86.60 - ICD-10-CM) ACTIVE 02/15/2023 CHRONIC PAIN SYNDROME (G89.4 - ICD-10-CM) ACTIVE 02/15/2023 OBESITY, UNSPECIFIED (E66.9 - ICD-10-CM) ACTIVE 02/15/2023 MAJOR DEPRESSIVE DISORDER, R ECURRENT, UNSPECIFIED (F33.9 - ICD-10-CM) ACTIVE 02/12/2023 ESSENTIAL (PRIMARY) HYPERTENSION (I10 - ICD-10-CM) ACT BROWN 02/12/2023 GASTRO-ESOPHAGEAL REFLUX DIS EASE WITHOUT ESOPHAGITIS (K21.9 - ICD-10-CM) ACTIVE 02/12/2023 SUICIDAL IDEATIONS (R45.851 - ICD-10-CM) ACTIVE 02/12/2023 PERSONALITY DISORDER, UNSPECIFIED (F60.9 - ICD-10-CM) ACTIVE 02/15/2023 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) AC TIVE 02/15/2023 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 Component Value Range Date ALBUMIN 3.8 g/dL 3.2 - 4.8 08/25/2023 08:1 8 pm EST ALKALINE PHOSPHATASE (ALK PHOS) 74 U/L 46 - 116 08/25/2023 08:18 pm EST ALT (ALANINE TRANSAMINASE) 10 U/L 10-49 0 08/25/2023 08:18 pm EST AST (Aspartate Transferase) 13 U/L <34 08/25/2023 08:18 pm EST Albumin/Globulin (A/G) Ratio 2.1 1.0 - 2.7 08/25/2023 08:18 pm EST BILIRUBIN, DIRECT (D BILI) -0.9 0.0 - 0.3 0 08/25/2023 08:18 pm EST BILIRUBIN, TOTAL (TBILI) 0.2 0.2 - 1.1 08:18 pm EST GLOBULIN 1.8 g/dL 2.1 - 3.6 08/25/2023 08:1 8 pm EST TOTAL PROTEIN (TP) 5.6 g/dL 5.7 - 8.2 08:18 pm EST * RENAL PANEL Performed by: [id number] [email or web address], [address] [place] [address] [place] [address] Xochitl Fonseca M.D. Component Value Range Date ALBUMIN 3.8 g/dL 3.2 - 4.8 08/25/2023 08:1 8 pm EST BUN 19 mg/dL 10 - 22 08/25/2023 08:1 8 pm EST CALCIUM 8.6 mg/dL 8.3 - 10.6 08/25/2023 08:1 8 pm EST CHLORIDE 111 mEq/L 98 - 107 08/25/2023 08:1 8 pm EST ANION GAP 9.2 5.5 - 16.0 08/25/2023 08:1 8 pm EST BUN/CREAT 19 8.6 - 16.7 08/25/2023 08:1 8 pm EST CO2 (BICARBONATE) 26 mEq/L 20.0 - 31.0 08/25/2023 08:18 pm EST CREATININE (CREAT) 1 mg/dL 0.7-1.3 08:18 pm EST EGFR 93.7436 >= 90 08/25/2023 08:1 8 pm EST GLUCOSE 80 74 - 106 08/25/2023 08:1 8 pm EST PHOSPHORUS 3.2 mg/dL 2.4 - 5.1 08/25/2023 08:1 8 pm EST POTASSIUM (K) 4.2 mEq/L 3.4 - 4.5 08/25/2023 08: 18 pm EST SODIUM (Na) 142 mEq/L 136 - 145 08/25/2023 08:1 8 pm EST RENAL PANEL See Attachment 08/25/2023 08 :18 pm EST * CMP Performed by: [id number] [facility], [address], [place] [address], [facility] Xochitl Fonseca M.D. Component Value Range Date POTASSIUM (K) 4.5 mEq/L 3.4 - 4.5 08/13/2023 10: 34 pm EST SODIUM (Na) 141 mEq/L 136 - 145 08/13/2023 10:3 4 pm EST TOTAL PROTEIN (TP) 6.8 g/dL 5.7 - 8.2 10:34 pm EST Albumin/Globulin (A/G) Ratio 1.8 1.0 - 2.7 08/13/2023 10:34 pm EST ALKALINE PHOSPHATASE (ALK PHOS) 89 U/L 46 - 116 08/13/2023 10:34 pm EST ALT (ALANINE TRANSAMINASE) 11 U/L 10-49 0 08/13/2023 10:34 pm EST ANION GAP 12.5 5.5 - 16.0 08/13/2023 10:3 4 pm EST AST (Aspartate Transferase) 16 U/L <34 08/13/2023 10:34 pm EST BILIRUBIN, TOTAL (TBILI) -0.8 0.2 - 1.1 08/2023 10:34 pm EST BUN 22 mg/dL 10 - 22 08/13/2023 10:3 4 pm EST BUN/CREAT 20 8.6 - 16.7 08/13/2023 10:3 4 pm EST CALCIUM 9.7 mg/dL 8.3 - 10.6 08/13/2023 10:3 4 pm EST CHLORIDE 109 mEq/L 98 - 107 08/13/2023 10:3 4 pm EST CO2 (BICARBONATE) 24 mEq/L 20.0 - 31.0 08/13/2023 10:34 pm EST CREATININE (CREAT) 1.1 mg/dL 0.7-1.3 10:34 pm EST EGFR 83.6195 >= 90 08/13/2023 10:3 4 pm EST GLOBULIN 2.4 g/dL 2.1 - 3.6 08/13/2023 10:3 4 pm EST GLUCOSE 103 74 - 106 08/13/2023 10:3 4 pm EST ALBUMIN 4.4 g/dL 3.2 - 4.8 08/13/2023 10:3 4 pm EST * CBC with DIFF Performed by: [id number] [facility], [address], [place] [address], [facility] Xochitl Fonseca M.D. Component Value Range Date PLATELETS (PLT) 249 10*3/uL 182 - 369 08/13/2023 1 0:34 pm EST RBC (RED BLOOD CELLS) 4.73 10*6/uL 3.93 - 5.22 2023 10:34 pm EST RDW (RED CELL DISTRIBUTION WIDTH) 13.7 % 11.7 - 14.4 08/13/2023 10:34 pm EST WHITE BLOOD CELLS (WBC) 6.25 10*3/uL 3.98 - 10.04 02/08/2023 10:34 pm EST BASOPHILS # 0.04 10*3/uL 0.01 - 0.08 08/13/2023 10:3 4 pm EST BASOPHILS % 0.6 % 0.1 - 0.8 08/13/2023 10:3 4 pm EST EOSINOPHILS # 0.22 10*3/uL 0.04 - 0.54 08/13/2023 10: 34 pm EST EOSINOPHILS % 3.5 % 0.7 - 7.0 08/13/2023 10: 34 pm EST HEMATOCRIT (HCT) 43.9 % 34.1 - 44.9 08/13/2023 10:34 pm EST HEMOGLOBIN (HGB) 13.9 g/dL 11.2 -15.7 08/13/2023 10:34 pm EST IMMATURE GRANS # 0.01 10*3/uL 0.00 - 0.09 08/13/2023 10:34 pm EST IMMATURE GRANS % 0.2 % 0.0 - 0.9 08/13/2023 10:34 pm EST LYMPHOCYTES # 1.86 10*3/uL 1.18 - 3.74 08/13/2023 10: 34 pm EST LYMPHOCYTES % 29.8 % 19.3 - 53.1 08/13/2023 10: 34 pm EST MCHC (Mean Corpuscular Hemog lobin Concentration) 31.7 g/dL 32.3 - 36.5 08/13/2023 10:34 pm EST MCH (Mean Corpuscular Hemoglobin) 29.4 pg 25.7 - 32.2 08/13/2023 10:34 pm EST MCV (Mean Corpuscular Volume) 92.8 fL 79.4 - 94.8 08/13/2023 10:34 pm EST MONOCYTES # 0.5 10*3/uL 0.24 - 0.82 08/13/2023 10:3 4 pm EST MONOCYTES % 8 % 4.8 - 12.4 08/13/2023 10:3 4 pm EST MPV (Mean Platelet Volume) 11.6 fL 9.4 - 12.4 0 08/13/2023 10:34 pm EST NEUTROPHILS # 3.62 10*3/uL 1.56 - 6.13 08/13/2023 10: 34 pm EST NEUTROPHILS % 57.9 % 34.0 - 71.1 08/13/2023 10: 34 pm EST NUCLEATED RBCS (NRBC) NORMAL /100WBC < 0.1 08/2023 10:34 pm EST CBC with DIFF See Attachment 08/13/2023 1 0:34 pm EST * Individual Tests: Basic Metabolic Panel (BMP) / IRON PANEL / Hemoglobin A1C / CBC with DIFF Performed by: [id number] [facility], [address], [place] [address], [facility] Xochitl Fonseca M.D. Component Value Range Date Hemoglobin A1C 5.3 % <5.7 06/23/2023 05 :05 pm EST * Basic Metabolic Panel (BMP) Performed by: [id number] [email or web address], [facility] [address] [place] [address] [place] [address] Xochitl Fonseca M.D. Component Value Range Date ANION GAP 10.2 5.5 - 16.0 06/23/2023 05:0 5 pm EST BUN 18 mg/dL 10 - 22 06/23/2023 05:0 5 pm EST BUN/CREAT 18 8.6 - 16.7 06/23/2023 05:0 5 pm EST CALCIUM 8.4 mg/dL 8.3 - 10.6 06/23/2023 05:0 5 pm EST CHLORIDE 111 mEq/L 98 - 107 06/23/2023 05:0 5 pm EST CO2 (BICARBONATE) 23 mEq/L 20.0 - 31.0 06/23/2023 05:05 pm EST CREATININE (CREAT) 1 mg/dL 0.7-1.3 05:05 pm EST EGFR 93.7979 >= 90 06/23/2023 05:0 5 pm EST GLUCOSE 95 74 - 106 06/23/2023 05:0 5 pm EST POTASSIUM (K) 4.2 mEq/L 3.4 - 4.5 06/23/2023 05: 05 pm EST SODIUM (Na) 140 mEq/L 136 - 145 06/23/2023 05:0 5 pm EST * IRON PANEL Performed by: [id number] [email or web address], [facility] [address] [place] [address] [place] [address] Xochitl Fonseca M.D. Component Value Range Date IRON 44 ??g/dL 65-175 06/23/2023 05:0 5 pm EST % SATURATION (SAT) 13.3 % 20.0 - 50.0 05:05 pm EST TOTAL IRON BINDING CAPACITY (TIBC) 332 ??g/dL 250 - 425 06/23/2023 05:05 pm EST * CBC with DIFF Performed by: [id number] [email or web address], [facility] [address] [place] [address] [place] [address] Xochitl Fonseca M.D. Component Value Range Date BASOPHILS # 0.02 10*3/uL 0.01 - 0.08 06/23/2023 05:0 5 pm EST BASOPHILS % 0.4 % 0.1 - 0.8 06/23/2023 05:0 5 pm EST EOSINOPHILS # 0.15 10*3/uL 0.04 - 0.54 06/23/2023 05: 05 pm EST EOSINOPHILS % 2.9 % 0.7 - 7.0 06/23/2023 05: 05 pm EST HEMATOCRIT (HCT) 38.3 % 34.1 - 44.9 06/23/2023 05:05 pm EST HEMOGLOBIN (HGB) 12.3 g/dL 11.2 -15.7 06/23/2023 05:05 pm EST IMMATURE GRANS # 0.02 10*3/uL 0.00 - 0.09 06/23/2023 05:05 pm EST MCH (Mean Corpuscular Hemoglobin) 30.4 pg 25.7 - 32.2 06/23/2023 05:05 pm EST MCV (Mean Corpuscular Volume) 94.8 fL 79.4 - 94.8 06/23/2023 05:05 pm EST MONOCYTES # 0.56 10*3/uL 0.24 - 0.82 06/23/2023 05:0 5 pm EST MONOCYTES % 10.9 % 4.8 - 12.4 06/23/2023 05:0 5 pm EST MPV (Mean Platelet Volume) 11 fL 9.4 - 12.4 1 08/24/2022 05:05 pm EST NEUTROPHILS # 3.25 10*3/uL 1.56 - 6.13 06/23/2023 05: 05 pm EST NEUTROPHILS % 62.9 % 34.0 - 71.1 06/23/2023 05: 05 pm EST NUCLEATED RBCS (NRBC) NORMAL /100WBC < 0.1 06/11 05:05 pm EST PLATELETS (PLT) 184 10*3/uL 182 - 369 06/23/2023 0 5:05 pm EST RBC (RED BLOOD CELLS) 4.04 10*6/uL 3.93 - 5.22 2022 05:05 pm EST RDW (RED CELL DISTRIBUTION WIDTH) 14.6 % 11.7 - 14.4 06/23/2023 05:05 pm EST WHITE BLOOD CELLS (WBC) 5.16 10*3/uL 3.98 - 10.04 06/11 05:05 pm EST IMMATURE GRANS % 0.4 % 0.0 - 0.9 06/23/2023 05:05 pm EST LYMPHOCYTES # 1.16 10*3/uL 1.18 - 3.74 06/23/2023 05: 05 pm EST LYMPHOCYTES % 22.5 % 19.3 - 53.1 06/23/2023 05: 05 pm EST MCHC (Mean Corpuscular Hemog lobin Concentration) 32.1 g/dL 32.3 - 36.5 06/23/2023 05:05 pm EST CBC with DIFF See Attachment 06/23/2023 0 5:05 pm EST * CMP Performed by: [id number] [facility], [address], [place] [address], [facility] Xochitl Fonseca M.D. Component Value Range Date ALBUMIN 3.7 g/dL 3.2 - 4.8 05/17/2023 07:1 3 pm EST ALKALINE PHOSPHATASE (ALK PHOS) 72 U/L 46 - 116 05/17/2023 07:13 pm EST ALT (ALANINE TRANSAMINASE) 10 U/L 10-49 1 07/17/2022 07:13 pm EST AST (Aspartate Transferase) 10 U/L <34 05/17/2023 07:13 pm EST Albumin/Globulin (A/G) Ratio 1.8 1.0 - 2.7 05/17/2023 07:13 pm EST ANION GAP 13.3 5.5 - 16.0 05/17/2023 07:1 3 pm EST BILIRUBIN, TOTAL (TBILI) 0.3 0.2 - 1.1 12/2022 07:13 pm EST BUN 16 mg/dL 10 - 22 05/17/2023 07:1 3 pm EST BUN/CREAT 17.8 8.6 - 16.7 05/17/2023 07:1 3 pm EST CALCIUM 8.1 mg/dL 8.3 - 10.6 05/17/2023 07:1 3 pm EST CHLORIDE 109 mEq/L 98 - 107 05/17/2023 07:1 3 pm EST CO2 (BICARBONATE) 21 mEq/L 20.0 - 31.0 05/17/2023 07:13 pm EST CREATININE (CREAT) 0.9 mg/dL 0.7-1.3 07:13 pm EST EGFR 106.5264 >= 90 05/17/2023 07:1 3 pm EST GLOBULIN 2.1 g/dL 2.1 - 3.6 05/17/2023 07:1 3 pm EST GLUCOSE 86 74 - 106 05/17/2023 07:1 3 pm EST POTASSIUM (K) 4.3 mEq/L 3.4 - 4.5 05/17/2023 07: 13 pm EST SODIUM (Na) 139 mEq/L 136 - 145 05/17/2023 07:1 3 pm EST TOTAL PROTEIN (TP) 5.8 g/dL 5.7 - 8.2 07:13 pm EST * CBC with DIFF Performed by: [id number] [facility], [address], [place] [address], [facility] Xochitl Fonseca M.D. Component Value Range Date BASOPHILS # 0.02 10*3/uL 0.01 - 0.08 05/17/2023 07:1 3 pm EST BASOPHILS % 0.5 % 0.1 - 0.8 05/17/2023 07:1 3 pm EST EOSINOPHILS # 0.07 10*3/uL 0.04 - 0.54 05/17/2023 07: 13 pm EST EOSINOPHILS % 1.6 % 0.7 - 7.0 05/17/2023 07: 13 pm EST HEMATOCRIT (HCT) 42.3 % 34.1 - 44.9 05/17/2023 07:13 pm EST HEMOGLOBIN (HGB) 13.7 g/dL 11.2 -15.7 05/17/2023 07:13 pm EST IMMATURE GRANS # Normal 10*3/uL 0.00 - 0.09 07:13 pm EST IMMATURE GRANS % Normal % 0.0 - 0.9 05/17/2023 07:13 pm EST LYMPHOCYTES # 1.54 10*3/uL 1.18 - 3.74 05/17/2023 07: 13 pm EST LYMPHOCYTES % 35.6 % 19.3 - 53.1 05/17/2023 07: 13 pm EST MCHC (Mean Corpuscular Hemog lobin Concentration) 32.4 g/dL 32.3 - 36.5 05/17/2023 07:13 pm EST MCH (Mean Corpuscular Hemoglobin) 29.5 pg 25.7 - 32.2 05/17/2023 07:13 pm EST MCV (Mean Corpuscular Volume) 91 fL 79.4 - 94.8 05/17/2023 07:13 pm EST MONOCYTES # 0.41 10*3/uL 0.24 - 0.82 05/17/2023 07:1 3 pm EST MONOCYTES % 9.5 % 4.8 - 12.4 05/17/2023 07:1 3 pm EST MPV (Mean Platelet Volume) 10.9 fL 9.4 - 12.4 1 07/17/2022 07:13 pm EST NEUTROPHILS # 2.28 10*3/uL 1.56 - 6.13 05/17/2023 07: 13 pm EST NEUTROPHILS % 52.8 % 34.0 - 71.1 05/17/2023 07: 13 pm EST NUCLEATED RBCS (NRBC) NORMAL /100WBC < 0.1 1112/2022 07:13 pm EST PLATELETS (PLT) 152 10*3/uL 182 - 369 05/17/2023 0 7:13 pm EST RBC (RED BLOOD CELLS) 4.65 10*6/uL 3.93 - 5.22 2022 07:13 pm EST RDW (RED CELL DISTRIBUTION WIDTH) 14.6 % 11.7 - 14.4 05/17/2023 07:13 pm EST WHITE BLOOD CELLS (WBC) 4.32 10*3/uL 3.98 - 10.04 1112/2022 07:13 pm EST CBC with DIFF See Attachment 05/17/2023 0 7:13 pm EST * Individual Tests: CMP / LIPID / TSH / Vitamin B12 / VITAMIN D, 25 HYDROXY / 1CBC / 2DIFF / Hemoglobin A1C / Liver Function Panel (LFT) / RENAL PANEL / DIRECT BILIRUBIN (DBILI) / PHOSPHORUS Performed by: [id number] [facility], [address], [place] [address], [facility] Xochitl Fonseca M.D. Component Value Range Date TSH (THYROID STIMULATING HORMONE) 3.62 ??IU/mL 0.55 - 4.78 03/01/2023 03:31 pm EDT Vitamin B12 164 pg/mL 211 - 911 03/01/2023 03:3 1 pm EDT VITAMIN D , 25-OH 26 ng/mL 30 - 100 03/01/2023 03:31 pm EDT Hemoglobin A1C 5.5 % <5.7 03/01/2023 03 :31 pm EDT BILIRUBIN, DIRECT (D BILI) 0.1 0.0 - 0.3 0 03/01/2023 03:31 pm EDT * CMP Performed by: [id number] [facility], [address], [place], [place] [address] Xochitl Fonseca M.D. Component Value Range Date ALBUMIN 4 g/dL 3.2 - 4.8 03/01/2023 03:3 1 pm EDT ALKALINE PHOSPHATASE (ALK PHOS) 85 U/L 46 - 116 03/01/2023 03:31 pm EDT ALT (ALANINE TRANSAMINASE) 8 U/L 11 - 48 0 03/01/2023 03:31 pm EDT AST (Aspartate Transferase) 11 U/L 0 - 34 03/01/2023 03:31 pm EDT BILIRUBIN, TOTAL (TBILI) 0.4 0.2 - 1.1 03:31 pm EDT BUN 12 mg/dL 10 - 22 03/01/2023 03:3 1 pm EDT CALCIUM 8.5 mg/dL 8.3 - 10.6 03/01/2023 03:3 1 pm EDT CHLORIDE 110 mEq/L 98 - 107 03/01/2023 03:3 1 pm EDT CO2 (BICARBONATE) 22 mEq/L 20.0 - 31.0 03/01/2023 03:31 pm EDT CREATININE (CREAT) 1.1 mg/dL 0.7 - 1.3 03:31 pm EDT GLUCOSE 78 74 - 106 03/01/2023 03:3 1 pm EDT POTASSIUM (K) 3.8 mEq/L 3.4 - 4.5 03/01/2023 03: 31 pm EDT SODIUM (Na) 140 mEq/L 136 - 145 03/01/2023 03:3 1 pm EDT TOTAL PROTEIN (TP) 6.2 g/dL 5.7 - 8.2 03:31 pm EDT Albumin/Globulin (A/G) Ratio 1.8 1.0 - 2.7 03/01/2023 03:31 pm EDT ANION GAP 11.8 5.5 - 16.0 03/01/2023 03:3 1 pm EDT BUN/CREAT 10.9 8.6 - 16.7 03/01/2023 03:3 1 pm EDT EGFR 84 >= 90 03/01/2023 03:3 1 pm EDT GLOBULIN 2.2 g/dL 2.1 - 3.6 03/01/2023 03:3 1 pm EDT * LIPID Performed by: [id number] [email or web address] [facility], [address] [place] [address], [facility] Xochitl Fonseca M.D. Component Value Range Date CHOLESTEROL 200 mg/dL <200 03/01/2023 03:3 1 pm EDT HDL 62 mg/dL >39 03/01/2023 03:3 1 pm EDT TRIGLYCERIDES 118 mg/dL 0 - 149 03/01/2023 03: 31 pm EDT LDL (LOW DENSITY LIPOPROTEINS) 114.4 mg/dL < 100 03/01/2023 03:31 pm EDT * 1CBC Performed by: [id number] [email or web address] [facility], [address] Xochitl Fonseca M.D. Component Value Range Date WHITE BLOOD CELLS (WBC) 4.58 10*3/uL 3.98 - 10.04 02/10 03:31 pm EDT HEMOGLOBIN (HGB) 13.4 g/dL 11.2 -15.7 03/01/2023 03:31 pm EDT MCHC (Mean Corpuscular Hemog lobin Concentration) 32.1 g/dL 32.3 - 36.5 03/01/2023 03:31 pm EDT MCH (Mean Corpuscular Hemoglobin) 29.1 pg 25.7 - 32.2 03/01/2023 03:31 pm EDT MCV (Mean Corpuscular Volume) 90.7 fL 79.4 - 94.8 03/01/2023 03:31 pm EDT MPV (Mean Platelet Volume) 10.2 fL 9.4 - 12.4 0 03/01/2023 03:31 pm EDT PLATELETS (PLT) 205 10*3/uL 182 - 369 03/01/2023 0 3:31 pm EDT RBC (RED BLOOD CELLS) 4.61 10*6/uL 3.93 - 5.22 2022 03:31 pm EDT RDW (RED CELL DISTRIBUTION WIDTH) 15.6 % 11.7 - 14.4 03/01/2023 03:31 pm EDT HEMATOCRIT (HCT) 41.8 % 34.1 - 44.9 03/01/2023 03:31 pm EDT * 2DIFF Performed by: [id number] [employer] [facility], [address] [facility] [address] Xochitl Fonseca M.D. Component Value Range Date BASOPHILS % 0.9 % 0.1 - 0.8 03/01/2023 03:3 1 pm EDT EOSINOPHILS % 3.1 % 0.7 - 7.0 03/01/2023 03: 31 pm EDT IMMATURE GRANS % 0.2 % 0.0 - 0.9 03/01/2023 03:31 pm EDT LYMPHOCYTES % 36.7 % 19.3 - 53.1 03/01/2023 03: 31 pm EDT BASOPHILS # 0.04 x10^3/??L 0.01 - 0.08 03/01/2023 03 :31 pm EDT EOSINOPHILS # 0.14 0.04 - 0.54 03/01/2023 03: 31 pm EDT IMMATURE GRANS # 0.01 0.00 - 0.09 03/01/2023 03:31 pm EDT LYMPHOCYTES # 1.68 x10^3/??L 1.18 - 3.74 03/01/2023 0 3:31 pm EDT MONOCYTES # 0.51 x10^3/??L 0.24 - 0.82 03/01/2023 03 :31 pm EDT MONOCYTES % 11.1 % 4.8 - 12.4 03/01/2023 03:3 1 pm EDT NEUTROPHILS # 2.2 x10^3/??L 1.56 - 6.13 03/01/2023 03 :31 pm EDT NEUTROPHILS % 48 % 34.0 - 71.1 03/01/2023 03: 31 pm EDT NUCLEATED RBCS (NRBC) NORMAL /100WBC < 0.1 02/10 03:31 pm EDT * Liver Function Panel (LFT) Performed by: [id number] [email or web address] [facility], [address] [place] [place], [place] [id number] [place] [address] Xochitl Fonseca M.D. Component Value Range Date ALBUMIN 4 g/dL 3.2 - 4.8 03/01/2023 03:3 1 pm EDT ALKALINE PHOSPHATASE (ALK PHOS) 85 U/L 46 - 116 03/01/2023 03:31 pm EDT ALT (ALANINE TRANSAMINASE) 8 U/L 11 - 48 0 03/01/2023 03:31 pm EDT AST (Aspartate Transferase) 11 U/L 0 - 34 03/01/2023 03:31 pm EDT BILIRUBIN, TOTAL (TBILI) 0.4 0.2 - 1.1 03:31 pm EDT TOTAL PROTEIN (TP) 6.2 g/dL 5.7 - 8.2 03:31 pm EDT BILIRUBIN, DIRECT (D BILI) 0.1 0.0 - 0.3 0 03/01/2023 03:31 pm EDT Albumin/Globulin (A/G) Ratio 1.8 1.0 - 2.7 03/01/2023 03:31 pm EDT GLOBULIN 2.2 g/dL 2.1 - 3.6 03/01/2023 03:3 1 pm EDT * RENAL PANEL Performed by: [id number] [email or web address] [facility], [address] [place], [place] [address] Xochitl Fonseca M.D. Component Value Range Date ALBUMIN 4 g/dL 3.2 - 4.8 03/01/2023 03:3 1 pm EDT BUN 12 mg/dL 10 - 22 03/01/2023 03:3 1 pm EDT CALCIUM 8.5 mg/dL 8.3 - 10.6 03/01/2023 03:3 1 pm EDT CHLORIDE 110 mEq/L 98 - 107 03/01/2023 03:3 1 pm EDT CO2 (BICARBONATE) 22 mEq/L 20.0 - 31.0 03/01/2023 03:31 pm EDT CREATININE (CREAT) 1.1 mg/dL 0.7 - 1.3 03:31 pm EDT GLUCOSE 78 74 - 106 03/01/2023 03:3 1 pm EDT POTASSIUM (K) 3.8 mEq/L 3.4 - 4.5 03/01/2023 03: 31 pm EDT SODIUM (Na) 140 mEq/L 136 - 145 03/01/2023 03:3 1 pm EDT PHOSPHORUS 4.6 mg/dL 2.4 - 5.1 03/01/2023 03:3 1 pm EDT ANION GAP 11.8 5.5 - 16.0 03/01/2023 03:3 1 pm EDT BUN/CREAT 10.9 8.6 - 16.7 03/01/2023 03:3 1 pm EDT EGFR 84 >= 90 03/01/2023 03:3 1 pm EDT * PHOSPHORUS Performed by: [id number] [facility], [address], [place] [address], [facility] Xochitl Fonseca M.D. Component Value Range Date PHOSPHORUS 4.6 mg/dL 2.4 - 5.1 03/01/2023 03:3 1 pm EDT PHOSPHORUS See Attachment 03/01/2023 03 :31 pm EDT Encounters Encounter Performer Performer Role Encounter Diagnoses Location Date Discharge - Home Health Unknown/TBD - Home/apt. with home health services [facility] 02/15/2023 04:55 pm EDT - 09/11/2023 10:52 am EST Immunizations Vaccine Date Influenza TB 1 Step [place] (PPD) TB 2 Step [place] Skin Test 03/03/2023 0 3:45 pm EDT Prevnar 20 SARS-COV-2(COVID-19)Moderna bivalent degroot ster Social History
--- OUTSIDE RECORDS SUMMARY | 2024-06-23 12:35 | XMS_ITS ---
Author Organization [facility] Address [address] [place] [address] Care Team Providers Care Six Sigma Black Trainer Name Role Phone Shanti Morales Primary Care Provider [phone] REASON FOR VISIT Labs-fasting Encounters Encounter Location Date Provider Diagnosis [address] [place] [address] 06/23/2024 Shanti Morales Plan Of Treatment No Information Progress Notes * Moreno VIDAL DDOB:0 1975 (49 yo M)Acc No.[id number]:06/23/2024 UNLOCKED PROGRESS NOTE Patient:?Mp VIDALcinthya mcgovern Keny Provider:?Shanti Morales APRN :1975???Age:49 Y???Sex:Male Seamus e:06/23/2024 Address:[address], [address], [place], [place]-[address] Subjective: * Chief Complaints: * ???1. Labs-fasting. * Medical History:? Objective: * Vitals:? Assessment: Plan: * Treatment: * * Electronic signature of Karlie Morales , [id number] on 06/23/2024 at 12:34 PM MILL MANAGER Sign off status: Pending * Provider:?Shanti Morales APRN Date:?1 08/24/2023 Generated for Giovanni mcgovern/Faxing/eTransmitting on:?06/23/2024 12:34 PM MILL MANAGER
--- OUTSIDE RECORDS SUMMARY | 2024-06-23 12:35 | XMS_ITS ---
Author Organization [facility] Address [address] [place] [address] Care Team Providers Care Marine Fireman Name Role Phone Shanti Morales Primary Care Provider REASON FOR VISIT Medication refill Medications Medication SIG (Take, Route, Frequency, Duration) Notes Start Date End Date Status Eliquis 5 MG 1 tablet Orally twice daily for 30 days 05/17/2024 Active Encounters Encounter Location Date Provider Diagnosis [address] [address] 06/15/2024 Shanti Morales History of pulmonary embolus (PE) Z86.711 Assessments Encounter Date Diagnosis (ICD Code) Assessment Notes Treatment Notes Treatment Clinical Notes Section Notes 06/15/2024 History of pulmonary embolus (PE) (ICD-10 - Z86.711) Plan Of Treatment Medication Medication Name Sig Start Date Stop Date Notes Eliquis 5 MG 1 tablet Orally twice daily for 30 days 05/17 Progress Notes * Moreno VIDAL DDOB:0 1975 (49 yo M)Acc No.[id number]:06/15/2024 Patient:?Shanda VIDAL :1975???Age:49 Y???Sex:Male Address:[address], [address], [place], [address] * Refills? Refill Eliquis Tablet, 5 MG, Orally, 60, 1 tablet, twice daily, 30 days, Refills=3 Subjective: * Chief Complaints: * ???Medication refill * Medical History:? * Surgical History:? * Hospitalization/Major Diagno stic Procedure:? * Medications:? Objective: * Vitals:? * Physical Examination:? Assessment: * Assessment: 1.?History of pulmonary embo bruce (PE) - Z86.711??? Plan: * Treatment: * Procedure Codes:? * true * Date:? Generated for Giovanni mcgovern/Davina/eTransmitting on:?06/23/2024 12:35 PM PUBLIC RELATIONS COORDINATOR
--- OUTSIDE RECORDS SUMMARY | 2024-06-23 12:35 | XMS_ITS ---
Author Organization [facility] Address [address] [place] [address] Care Team Providers Care Beamer Operator Name Role Phone Shanti Morales Primary Care Provider [phone] REASON FOR VISIT Call Back Encounters Encounter Location Date Provider Diagnosis [address] [place] [address] 06/22/2024 Shanti Morales Plan Of Treatment No Information Progress Notes * Moreno VIDAL DDOB:0 1975 (49 yo M)Acc No.[id number]:06/22/2024 Patient:?Mp VIDALcinthya Bustillo :1975???Age:49 Y???Sex:Male Address:[address], [address], [place], [address] * true * Date:? Generated for Giovanni mcgovern/Fakearag/eTransmitting on:?06/23/2024 12:35 PM DINING SERVICES MANAGER
--- OUTSIDE RECORDS SUMMARY | 2024-06-23 12:36 | XMS_ITS | Patient Health Record ---
Author Organization [facility] Address [address] [place] [address] Care Team Providers Care Associate Director Financial Aid Name Role Phone Shanti Morales Primary Care Provider Shila Silvestre Unavailable [phone] Allergies No Known Allergies Reason For Referral Reason Colon cancer screeni ng Diagnosis 1 Screening for colon cancer (Z12.11) Referral Organization [facility] Referring Provider First Name Shanti Referring Provider Last Name Short Referring Provider Speciality Family Med icine Referred Provider Specialty Gastroentero logy General Notes Robbie ISAAC, Aurelia E 0 03/29/2024 01:20:44 PM > Successfully faxed referral order/pertinent pt. information to [facility]-Gastroenterology Dr. Zee. Pt. made aware both by message sent via [employer] system and by letter sent via mail. Clinical Notes [facility] p-Gastroenterology Dr. Zee, [address] , [place] [address], Referral Priority Routine Reason Depression Diagnosis 1 Depression (F32.9) Referral Organization [facility] Referring Provider First Name Shanti Referring Provider Last Name Short Referring Provider Speciality Family Med icine Referred Provider Specialty Behavioral H ealth Referral Priority Routine Reason Chronic back pain wi th Hx. 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 information to [facility]- Pain Management. Pt. notified of this both via message sent via [employer] system and by letter sent via mail., Aurelia Avalos RN 03/30/2024 11:25:11 AM > The following was copied and pasted from TE. Payton with [facility] in [place] left voicemail stating that they received the referral for pain management, but unfortunately they do not offer pain management services anymore. Call back number left for any further questions [phone]. Forwarding to nurse., Aurelia Avalos RN 03/30/2024 11:25:25 AM > Successfully faxed referral order/pertinent pt. information to [facility], [place], [place]. Pt. notified of this both via message sent via [employer] system and by letter sent via mail. Clinical Notes [facility], [place], [place], Address: [address] [place] [address], Phone (appointments): [phone] Referral Priority Routine Reason mobility issues r/t chronic back pain Diagnosis 1 Mobility impaired (Z 74.09) Referral Organization [facility] Referring Provider First Name Shanti Referring Provider Last Name Short [facility] Referred Provider Specialty Physical The rapist General Notes Aurelia Avalos RN 0 03/29/2024 01:47:31 PM > Successfully faxed referral order/pertinent pt. information to [facility]-Physical Therapy, Maria E Stapleton 06/07/2024 09:07:54 AM >Referral faxed t [facility]. See T.E Clinical Notes [facility], [facility] , [place] [address], Referral Priority Routine Reason Hx of multiple DVTs/ PEs. Mgmt. of anticoagulant Diagnosis 1 History of pulmonary embolus (PE) (Z86.711) Referral Organization [facility] Referring Provider First Name Shanti Referring Provider Last Name Short Referring Provider Speciality [facility] jonathan Referred Provider Specialty Hematology General Notes Maria E Stapleton 03:34:51 PM >Referral faxed to [facility] Hemat[facility]., Maria E Stapleton 05/22/2024 03:36:20 PM >Referral letter & message sent to client. 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 See T.E. Referral Priority Routine Medications Medication SIG (Take, Route, Frequency, Duration) Notes Start Date End Date Status Cefadroxil 500 MG 1 capsule Orally jd ry 12 hrs ID Active Eliquis 5 MG 1 tablet Orally twic e daily for 30 days 05/17/2024 Active Furosemide 20 MG 1 tablet Orally Once a day for 30 days Active traZODone HCl 50 MG 1 tablet at bedtime as needed Orally Once a day for 30 days Active Gabapentin 600 mg TAKE 1 TABLET BY DONOVAN TH THREE TIMES A DAY for 30 Active Famotidine 20 MG 1 tablet at bedtime as needed Orally Once a day Not-Taking Tamsulosin HCl 0.4 MG 1 capsule Orally O nce a day for 30 days Active Albuterol Sulfate HFA 108 (90 Base) MCG/ACT Inhale 2 puffs Inhalation Every 6 hours for 30 days Active Wheelchair - as directed 03/29/2024 Acti ve Potassium Chloride ER 20 MEQ 1 tablet with food Orally Once a day for 30 days Active tiZANidine HCl 4 MG 1 tablet at bedtime as needed Orally Once a day for 30 days Active Pantoprazole Sodium 40 MG 1 tablet Orall y Once a day for 30 days Active Losartan Potassium-HCTZ 50-12.5 MG 1 tablet Orally Once a day for 30 days Active Social History Tobacco Use: Social History Observation Description Date Details (start date - stop date) Unknown Tobacco Control (Standard) Question Answer Notes Tobacco use: Uses tobacco in other forms Additional Findings: Tobacco user e-cigarette Problems Problem Type SNOMED Code ICD Code Onset Dates Problem Status W/U Status Risk Notes Problem Depression (417930904) Depression (F32.9) Active confirmed Problem Urinary hesitancy (6990511) Urinary hesitancy (R39.11) Active confirmed Problem Morbid obesity (115792737) Morbid obesity due to excess calories (E66.01) Active confirmed Problem Acid reflux (927132834) Acid reflux (K21.9) Active confirmed Problem Essential hypertension (80609552) Essential hypertension (I10) Active confirmed Problem History of pulmonary embolus (168573930) History of pulmonary embolus (PE) (Z86.711) Active confirmed Problem Mental disorder caused by drug (216000841) Opioid use disorder (F11.99) Active confirmed Problem Chronic pain (95091343) 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) Active confirmed Vital Signs Heart Rate 108 /min 05/15/2024 Respiratory Rate 18 /min 05/15/2024 Oximetry 98 % 05/15/2024 Blood pressure diastolic 92 mm Hg 05/15/2024 Height 60 in 05/15/2024 Blood pressure systolic 128 mm Hg 05/15/2024 Weight 372 lbs 05/15/2024 BMI 72.64 kg/m2 05/15/2024 Encounters Encounter Location Date Provider Diagnosis [address] [place] [address] 03/24/2024 Shanti Morales Mobility impaired Z74.[address] [place] [address] 03/30/2024 Shnati Morales [address] [facility] [place] [address] 03/31/2024 Shanti Morales [address] [address] 03/31/2024 Shila Silvestre [address] [place] [address] 04/06/2024 Shanti Morales [address] [place] [address] 05/17/2024 Shanti Morales History of pulmonary embolus (PE) Z86.[address] [place] [address] 05/17/2024 Shanti Morales [address] [place] [address] 06/02/2024 Shanti Morales Chronic pain after traumatic injury G89.[address] [place] [address] 06/15/2024 Shanti Morales History of pulmonary embolus (PE) Z86.711 [address] [place] [address] 06/22/2024 Shanti Morales [facility] [place] [address] 05/15/2024 Shanti Morales Screening for diabetes mellitus Z13.1 ; Hospital discharge follow-up Z09 ; Screening for deficiency anemia Z13.0 ; Screening for hyperlipidemia Z13.220 ; Screening for metabolic disorder Z13.228 ; Screening for thyroid disorder Z13.29 ; Screening for prostate cancer Z12.5 ; Chronic pain after traumatic injury G89.29 and Essential hypertension I10 [facility] [place] [address] 06/23/2024 Shanti Morales [address] [place] [address] 03/23/2024 Shanti Morales Morbid obesity due t o excess calories E66.01 ; Establishing care with new doctor, encounter for Z71.89 ; Screening for prostate cancer Z12.5 ; Screening for deficiency anemia Z13.0 ; Screening for metabolic disorder Z13.228 ; Screening for diabetes mellitus Z13.1 ; Screening for hyperlipidemia Z13.220 ; Screening for thyroid disorder Z13.29 ; History of DVT of lower extremity Z86.718 ; History of pulmonary embolus (PE) Z86.711 ; Essential hypertension I10 ; Urinary hesitancy R39.11 ; Exposure to potential infection Z20.9 ; Acid reflux K21.9 ; Chronic pain after traumatic injury G89.29 ; History of opioid abuse Z87.898 ; Lumbar back pain M54.50 ; Depression F32.9 and History of hepatitis C Z86.19 Assessments Encounter Date Diagnosis (ICD Code) Assessment Notes Treatment Notes Treatment Clinical Notes Section Notes 03/23/2024 Morbid obesity due to excess calories (ICD-10 - E66.01) 03/23/2024 Establishing care with new doctor, encounter for (ICD-10 - Z71.89) 03/24/2024 Mobility impaired (ICD-10 - Z74.09) 05/15/2024 Hospital discharge follow-up (ICD-10 - Z09) 05/15/2024 Screening for diabetes mellitus (ICD-10 - Z13.1) 05/17/2024 History of pulmonary embolus (PE) (ICD-10 - Z86.711) 06/02/2024 Chronic pain after traumatic injury (ICD-10 - G89.29) 06/15/2024 History of pulmonary embolus (PE) (ICD-10 - Z86.711) 05/15/2024 Screening for deficiency anemia (ICD-10 - Z13.0) 03/23/2024 Screening for prostate cancer (ICD-10 - Z12.5) 05/15/2024 Screening for hyperlipidemia (ICD-10 - Z13.220) 03/23/2024 Screening for deficiency anemia (ICD-10 - Z13.0) 05/15/2024 Screening for metabolic disorder (ICD-10 - Z13.228) 03/23/2024 Screening for metabolic disorder (ICD-10 - Z13.228) 03/23/2024 Screening for diabetes mellitus (ICD-10 - Z13.1) 05/15/2024 Screening for thyroid disorder (ICD-10 - Z13.29) 05/15/2024 Screening for prostate cancer (ICD-10 - Z12.5) 03/23/2024 Screening for hyperlipidemia (ICD-10 - Z13.220) 03/23/2024 Screening for thyroid disorder (ICD-10 - Z13.29) 05/15/2024 Chronic pain after traumatic injury (ICD-10 - G89.29) 05/15/2024 Essential hypertension (ICD-10 - I10) 03/23/2024 History of DVT of lower extremity (ICD-10 - Z86.718) 03/23/2024 History of pulmonary embolus (PE) (ICD-10 - Z86.711) 03/23/2024 Essential hypertension (ICD-10 - I10) 03/23/2024 Urinary hesitancy (ICD-10 - R39.11) 03/23/2024 Exposure to potential infection (ICD-10 - Z20.9) 03/23/2024 Acid reflux (ICD-10 - K21.9) 03/23/2024 Chronic pain after traumatic injury (ICD-10 - G89.29) 03/23/2024 History of opioid abuse (ICD-10 - Z87.898) 03/23/2024 Lumbar back pain (ICD-10 - M54.50) 03/23/2024 Depression (ICD-10 - F32.9) 03/23/2024 History of hepatitis C (ICD-10 - Z86.19) Plan Of Treatment Pending Test Test Name Order Date Hemoglobin A1c* 05/15/2024 CBC With Differential/Platelet* 05/15/20 24 Vitamin D, 25-Hydroxy* 05/15/2024 Lipid Panel* 05/15/2024 CMP 14 Comprehensive Metabolic Panel* TSH Rfx on Abnormal to Free T4 4 PSA Total+% Free 05/15/2024 Insurance Providers Payer Name Payer Address Payer Phone Subscriber Number Group Number Insured Name Patient Relationship to Insured Coverage Start Date Coverage End Date [employer] Medicare [address] [address] [place] [address] [id number] Moreno Reese Self - patient is the insured [address] [address] [id number] Moreno Reese Self - patient is the insured 4 [facility] Claims Department [address] [place] [address] [id number] Moreno Reese Self - patient is the insured [address] [facility] Medicare Assure [address] [address] [place] [address] [id number] Moreno Reese Self - patient is the insured 1 4 MEDICARE PART A [address] [place] [address] [id number] Moreno Reese Self - patient is the insured 4 4 Medical (General) History Medical History History ICD Code Hepatitis C hypertension deep vein thrombosis pulmonary embolism venous insufficiency
[2024-06-23 12:39] LABS: Alanine Aminotransferase 13 U/L (6-50); Albumin Level 4.1 g/dL (3.5-5.1); Alkaline Phosphatase 89 U/L (38-126); Anion Gap 5 mmol/L (4-12); Aspartate Amino Transferase 21 U/L (17-59); Bilirubin,Total 0.5 mg/dL (0.2-1.3); Blood Urea Nitrogen 27 mg/dL (9-20); Calcium 9.1 mg/dL (8.4-10.2); Carbon Dioxide 25 mmol/L (22-30); Chloride 107 mmol/L (98-107); Cholesterol 185 mg/dL (0-200); Estimated Glomerular Filt Rate > 60; Glucose 94 mg/dL (65-110); HDL Direct 52 mg/dL; Potassium 3.9 mmol/L (3.4-5.0); Sodium 137 mmol/L (137-145); Triglycerides 84 mg/dL (<150)
[2024-06-23 12:50] LABS: LDL Cholesterol Direct 92 mg/dL
[2024-06-23 13:07] LABS: Hemoglobin A1C 5.7 % (<5.7)
[2024-06-23 13:26] LABS: Vitamin D 25 Hydroxy 30.5 ng/mL
[2024-06-26 13:33] LABS: PSA, Free 0.2 ng/mL; PSA, Total 0.5 ng/mL (< OR = 4.0); Percent Free Prostate Spec Ag 40 % (calc) (>25)
== END 2024-06-23 11:08 | disposition home or self-care (01) ==
PROVIDERS: PCP Nurse Practitioner Family; Visit Provider Nurse Practitioner Family
DX: Z13.1 Encounter for screening for diabetes mellitus (principal); Z13.0 Encounter for screening for diseases of the blood and blood-forming organs and certain disorders involving the immune mechanism; Z12.5 Encounter for screening for malignant neoplasm of prostate; Z13.220 Encounter for screening for lipoid disorders; Z13.228 Encounter for screening for other metabolic disorders; Z13.29 Encounter for screening for other suspected endocrine disorder
CPT/HCPCS: 36415; 80053; 80061; 82306; 83036; 84153; 84154; 84443; 85025

== ENCOUNTER 2024-09-01 10:39 | Outpatient (RCR) | payer MEDICARE, MEDICAID, SELFPAY ==
--- NOTE | 2024-09-01 11:51 | OTOPEVDC ---
Assessment and note entered by Edward Schaffer, OTR/L, CHT Thank you for referring Moreno Slaughter to [facility].? An evaluation has been completed. No further treatment is needed. Evaluation Information Assessment Status Evaluation Subjective Information Patient referred to OT for power wheelchair evaluation. Please refer to 12 page seating/ mobility form for details. Dx includes: chronic pain after traumatic injury, lumbar fusion 2018, obesity, HTN, PE, DVT, thoracic vertebral collapse. Reported Pain Level Additional Pain Score Comments Chronic and continuous burning/stabbing pain 4/ 10 pain in lumbar spine area which increases to 7/ 10 with mobility/standing. right shoulder pain 8/ 10 with active ROM. Right knee 5/10 with standing/ walking. Left ankle 4/10 sitting and 7/10 in standing/walking. Assessment OT Clinical Summary Moreno is unable to safely and independently ambulate household distances due to his current impairments of weakness, fatigue, pain, and decreased standing balance/tolerance. He is a high risk for falls due to decreased balance and has a history of falls contributing to his limited ability to safety use a walker or cane. He demonstrates functional mobility limitations that impairs his ability to safely participate in mobility-related ADLs. These limitations cannot be sufficiently resolved by the use of an appropriately fitted cane, walker, or manual wheelchair. Patient demonstrates right shoulder weakness and pain as well as back pain that limits his ability to safety and independently propel manual wheelchair around his apartment The use of a power wheelchair will greatly facilitate improved safety and independence with mobility related ADLs as well as improve positioning and pressure distribution to inhibit the formation of pressure sores. Moreno has demonstrated sufficient physical and mental capabilities needed to safely operate a power wheelchair in the home. Furthermore a scooter is not a safe option due to patient needing more posterior support than a scooter can provide as well as tilt feature for pressure relief and lower extremity edema. Plan of Care OT Services Indicated No
== END 2024-09-04 09:43 | disposition home or self-care (01) ==
LOC: ANHOT 10:39
PROVIDERS: PCP Nurse Practitioner Family; Visit Provider Nurse Practitioner Family
DX: G89.29 Other chronic pain (principal)
CPT/HCPCS: 97167